=== PATIENT | male | born 1990 | race African-American/Black ===

== ENCOUNTER 2016-07-26 12:49 | Inpatient (IN) | payer OTHER ==
[2016-07-26 16:07] VITALS: BMI 26.4
--- NOTE | 2016-07-26 17:14 | HP ---
CIWA Score - CIWA Score Nausea/Vomitin-Mild Nausea/No Vomiting Muscle Tremors: 4-Moderate,w/Arms Extend Anxiety: 4-Mod. Anxious/Guarded Agitation: 4-Moderately Restless Paroxysmal Sweats: 1-Minimal Palms Moist Orientation: 1-Uncertain about Date Tacttile Disturbances: 0-None Auditory Disturbances: 0-None Visual Disturbances: 0-None Headache: 3-Moderate CIWA-Ar Total Score: 18 Admission ROS BHS - HPI Chief Complaint: WITHDRAWAL SX Allergies/Adverse Reactions: Allergies Allergy/AdvReac Type Severity Reaction Status Date / Time No Known Allergies Allergy Verified 07/26/16 16:37 History of Present Illness: 26 YEARS OLD MALE WITH LONG HISTORY OF ALCOHOL NICOTINE DEPENDENCE, HAS HIV HEPATITIS C AND ANXIETY, LONGEST SOBRIETY "DAYS" IS ADMITTED TO DETOX Exam Limitations: No Limitations - Ebola screening Have you traveled outside of the country in the last 21 days: No Have you had contact with anyone from an Ebola affected area: No Have you been sick,other than usual withdrawal symptoms: No Do you have a fever: No - Review of Systems Constitutional: Chills, Changes in sleep EENT: reports: No Symptoms Reported Respiratory: reports: No Symptoms reported Cardiac: reports: No Symptoms Reported GI: reports: Nausea, Abdominal cramping : reports: No Symptoms Reported Musculoskeletal: reports: Back Pain, Joint Pain, Muscle Pain, Neck Pain Integumentary: reports: No Symptoms Reported Neuro: reports: Tremors Endocrine: reports: No Symptoms Reported Hematology: reports: No Symptoms Reported Psychiatric: reports: Judgement Intact, Anxious Other Systems: Reviewed and Negative Patient History - Patient Medical History Hx Anemia: No Hx Asthma: No Hx Chronic Obstructive Pulmonary Disease (COPD): No Hx Cancer: No Hx Cardiac Disorders: No Hx Congestive Heart Failure: No Hx Hypertension: No Hx Hypercholesterolemia: No Hx Pacemaker: No HX Cerebrovascular Accident: No Hx Seizures: No Hx Dementia: No Hx Diabetes: No Hx Gastrointestinal Disorders: No Hx Liver Disease: No Hx Genitourinary Disorders: No Hx Sexually Transmitted Disorders: No Hx Renal Disease (ESRD): No Hx Thyroid Disease: No Hx Human Immunodeficiency Virus (HIV): Yes Hx Hepatitis C: Yes Hx Depression: Yes Hx Suicide Attempt: No Hx Bipolar Disorder: No Hx Schizophrenia: No - Patient Surgical History Past Surgical History: No - PPD History Previous Implant?: No Documented Results: Negative w/o proof Implanted On Prior [facility] Admission?: No PPD to be Administered?: Yes - Smoking Cessation Smoking history: Current every day smoker Have you smoked in the past 12 months: Yes Aproximately how many cigarettes per day: 2 Cigars Per Day: 0 Hx Chewing Tobacco Use: No Initiated information on smoking cessation: Yes 'Breaking Loose' booklet given: 07/26/16 - Substance & Tx. History Hx Alcohol Use: Yes Hx Substance Use: Yes Substance Use Type: Alcohol, Cocaine Hx Substance Use Treatment: Yes - Substances Abused Alcohol Route: Oral Frequency: Daily Amount used: 5 22oz cans four loco Age of first use: 16 Date of Last Use: 07/26/16 Cocaine Route: Smoking Frequency: 1-2 times per week Amount used: $30-40 Age of first use: 23 Date of Last Use: 07/25/16 Family Disease History - Family Disease History Family Disease History: Diabetes: Grandparent, Father, Heart Disease: Mother Admission Physical Exam S - Vital Signs Vital Signs: Vital Signs - 24 hr 07/26/16 15:24 Temperature 97 F L Pulse Rate 87 Respiratory 20 Rate Blood Pressure 111/60 - Physical General Appearance: Yes: Nourished, Appropriately Dressed, Mild Distress, Tremorous, Irritable, Sweating, Anxious HEENTM: Yes: Hearing grossly Normal, Normal ENT Inspection, Normocephalic, Normal Voice Respiratory: Yes: Chest Non-Tender, Lungs Clear, Normal Breath Sounds, No Respiratory Distress, No Accessory Muscle Use Neck: Yes: Supple, Trachea in good position Breast: Yes: Breasts Symetrical Cardiology: Yes: Regular Rhythm, Regular Rate, S1, S2 Abdominal: Yes: Non Tender, Soft Genitourinary: Yes: Within Normal Limits Back: Yes: Normal Inspection Musculoskeletal: Yes: full range of Motion, Gait Steady, Back pain Extremities: Yes: Normal Range of Motion, Non-Tender, Tremors Neurological: Yes: Alert, Motor Strength 5/5, Normal Response, Depressed Affect Integumentary: Yes: Warm, Moist Lymphatic: Yes: Within Normal Limits - Diagnostic (1) Alcohol dependence with uncomplicated withdrawal Current Visit: Yes Status: Acute (2) HIV (human immunodeficiency virus infection) Current Visit: Yes Status: Acute (3) Nicotine dependence Current Visit: Yes Status: Acute Qualifiers: Nicotine product type: cigarettes Substance use status: uncomplicated Qualified Code(s): F17.210 - Nicotine dependence, cigarettes, uncomplicated (4) Hepatitis C antibody test positive Current Visit: Yes Status: Chronic (5) Benign heart murmur Current Visit: Yes Status: Chronic Cleared for Admission [facility] - Detox or Rehab [facility] Level of Care: Medically Managed Detox Regimen/Protocol: Librium [facility] Breath Alcohol Content Breath Alcohol Content: 0 Urine Drug Screen - Results Drug Screen Negative: No Urine Drug Screen Results: HALIE-Cocaine, BZO-Benzodiazepines
[2016-07-26] MEDS ORDERED: MENTHOL/PHENOL 1 EACH UD MM PRN (17:19)
[2016-07-26] MEDS ORDERED: MAG HYDROX/AL HYDROX/SIMETH 30 ML UNIT-DOSE CUP PO PRN (17:19)
[2016-07-26] MEDS ORDERED: NICOTINE POLACRILEX 2 MG GUM BC PRN (17:19)
[2016-07-26] MEDS ORDERED: MAGNESIUM CITRATE 300 ML BOTTLE PO PRN (17:19)
[2016-07-26] MEDS ORDERED: guaiFENesin/D-METHORPHAN HB 10 ML UNIT-DOSE CUPS PO PRN (17:19)
[2016-07-26] MEDS ORDERED: ACETAMINOPHEN 325 MG TABLET (FP) PO PRN (17:19)
[2016-07-26] MEDS ORDERED: LOPERAMIDE HCL 2 MG CAPSULE PO PRN (17:19)
[2016-07-26] MEDS ORDERED: P-EPHED 60MG/TRIPROLIDI 2.5MG TABLET PO PRN (17:19)
[2016-07-26] MEDS ORDERED: IBUPROFEN 400 MG TABLET (FP) PO PRN (17:19)
[2016-07-26] MEDS ORDERED: MAGNESIUM HYDROX 2400MG/30ML ORAL SUSPENSION 30 ML CUP PO PRN (17:19)
[2016-07-26] MEDS: chlordiazePOXIDE HCL 25 MG CAPSULE PO PRN (18:17)
[2016-07-26] MEDS: chlordiazePOXIDE HCL 25 MG CAPSULE PO SCH (22:22)
[2016-07-26] MEDS: THIAMINE HCL 100 MG TABLET (FP) PO SCH (22:23)
[2016-07-26] MEDS: diphenhydrAMINE HCL 50 MG CAPSULE PO PRN (22:25)
[2016-07-26 23:17] LABS: URINE APPEARANCE CLEAR; URINE BILIRUBIN NEGATIVE (NEGATIVE); URINE BLOOD NEGATIVE (NEGATIVE); URINE COLOR YELLOW; URINE GLUCOSE (UA) NEGATIVE (NEGATIVE); URINE KETONE NEGATIVE (NEGATIVE); URINE LEUK ESTERASE NEGATIVE (NEGATIVE); URINE NITRITE NEGATIVE (NEGATIVE); URINE PROTEIN NEGATIVE (NEGATIVE); URINE UROBILINOGEN 2.0 E.U/dl E.U./dl (0.2-1.0)
[2016-07-27] MEDS: chlordiazePOXIDE HCL 25 MG CAPSULE PO SCH ×4 (06:05→22:39)
[2016-07-27 10:03] LABS: MCH 31.1 pg (25.7-33.7); MCHC 32.8 g/dl (32.0-35.9); MEAN CELL VOLUME 94.8 fl (80-96); PLATELET COUNT 218 K/MM3 (134-434); RDW 14.6 % (11.9-15.9); WHITE BLOOD COUNT 4.6 K/mm3 (4.0-10.0)
--- NOTE | 2016-07-27 10:05 | PN ---
[facility] CIWA - CIWA Score Nausea/Vomitin-No Nausea/No Vomiting Muscle Tremors: 4-Moderate,w/Arms Extend Anxiety: 4-Mod. Anxious/Guarded Agitation: 5 Paroxysmal Sweats: 3 Orientation: 0-Oriented Tacttile Disturbances: 0-None Auditory Disturbances: 0-None Visual Disturbances: 0-None Headache: 1-Very Mild CIWA-Ar Total Score: 17 BHS Progress Note (SOAP) Subjective: shakes sweats irritable agitation anxiety body aches Objective: 07/27/16 10:04 Vital Signs Temperature 97.2 F L 07/27/16 09:32 Pulse Rate 77 07/27/16 09:32 Respiratory Rate 18 07/27/16 09:32 Blood Pressure 136/76 07/27/16 09:32 O2 Sat by Pulse Oximetry (%) Laboratory Tests 07/26/16 07/27/16 23:00 05:50 WBC 4.6 RBC 5.02 Hgb 15.6 Hct 47.6 MCV 94.8 MCHC 32.8 RDW 14.6 Plt Count 218 MPV 10.0 Urine Color Yellow Urine Appearance Clear Urine pH 5.0 Ur Specific [place] 1.021 Urine Protein Negative Urine Glucose (UA) Negative Urine Ketones Negative Urine Blood Negative Urine Nitrite Negative Urine Bilirubin Negative Urine Urobilinogen 2.0 e.u/dl Ur Leukocyte Esterase Negative labs pending awake/alert ambulating no acute distress Assessment: 07/27/16 10:05 withdrawal sx Plan: increase fluids labs pending continue detox motrin prn
[2016-07-27] MEDS: PRENATAL VITAMINS W/ FOLIC ACID TABLET (FP) PO SCH (10:19)
[2016-07-27] MEDS: NICOTINE 14 MG/24 HOURS TOPICAL PATCH TD SCH (10:22)
[2016-07-27] MEDS: AMMONIUM LACTATE 12% LOTION 225 GM BOTTLE TP SCH ×2 (11:00→22:40)
[2016-07-27 11:17] LABS: ALK PHOS 103 U/L (45-117); ANION GAP 7 (8-16); BILIRUBIN,TOTAL 0.3 mg/dL (0.2-1.0); CALCIUM 8.7 mg/dL (8.5-10.1); CO2 28 mmol/L (21-32); CREATININE 1.1 mg/dL (0.7-1.3); GLUCOSE,RANDOM 129 mg/dL (74-106); SGOT/AST 120 U/L (15-37); SGPT/ALT 254 U/L (12-78); TOT PROT 8.3 g/dl (6.4-8.2)
[2016-07-27] MEDS: hydrOXYzine PAMOATE 50 MG CAPSULE (FP) PO PRN (12:22)
--- NOTE | 2016-07-27 14:14 | CONSULT ---
[facility] Psychiatric Consult - Data Date of interview: 07/27/16 Admission source: [facility] Identifying data: First admission to [facility] for this 26 y/o AA male seeking detox treatment on for alcohol and cocaine dependence.Patient is single without children,domiciled,unemployed and supported on food stamps. Substance Abuse History: - Smoking Cessation. Smoking history: Current every day smoker. Have you smoked in the past 12 months: Yes. Aproximately how many cigarettes per day: 2. Cigars Per Day: 0. Hx Chewing Tobacco Use: No. Initiated information on smoking cessation: Yes. 'Breaking Loose' booklet given : 07/26/16. - Substance & Tx. History. Hx Alcohol Use: Yes. Hx Substance Use : Yes. Substance Use Type: Alcohol, Cocaine. Hx Substance Use Treatment: Yes. - Substances Abused. Alcohol. Route: Oral. Frequency: Daily. Amount used: 5 22oz cans four loco. Age of first use: 16. Date of Last Use: . Cocaine. Route: Smoking. Frequency: 1-2 times per week. Amount used: $30-40. Age of first use: 23. Date of Last Use: 07/25/16. Confirmed by patient. Medical History: HIV infection and hepatitis C. Psychiatric History: Patient reports a history of one psychiatric hospitalization (2015) at [facility].Diagnosed with MDD and Anxiety Disorder.Mr Berrios used to be on sertraline (later switched to lexapro) .Discontinued because of intolerable side effects (sexual impotence,suicidal ideation).Patient has stopped going to [facility],in [facility],where he used to undergo psychotherapy.His medication consists of xanax up to 6 mg/day.No reported history of suicide attempts. Physical/Sexual Abuse/Trauma History: Patient denies. Additional Comment: Urine Drug Screen Results: HALIE-Cocaine, BZO- Benzodiazepines.Noted. Mental Status Exam - Mental Status Exam Alert and Oriented to: Time, Place, Person Cognitive Function: Good Patient Appearance: Well Groomed Mood: Nervous, Withdrawn, Anxious Affect: Mood Congruent Patient Behavior: Sedated, Fatigued, Appropriate, Cooperative Speech Pattern: Clear Voice Loudness: Normal Thought Process: Goal Oriented Thought Disorder: Not Present Hallucinations: Denies Suicidal Ideation: Denies Homicidal Ideation: Denies Insight/Judgement: Poor Sleep: Poorly, Difficulty falling asleep Appetite: Good Muscle strength/Tone: Normal Gait/Station: Normal Psychiatric Findings - Problem List ([place] 1, 2,3) (1) Alcohol dependence with uncomplicated withdrawal Current Visit: Yes Status: Acute (2) Nicotine dependence Current Visit: Yes Status: Acute Qualifiers: Nicotine product type: cigarettes Substance use status: uncomplicated Qualified Code(s): F17.210 - Nicotine dependence, cigarettes, uncomplicated (3) Cocaine dependence Current Visit: Yes Status: Acute (4) Substance induced mood disorder Current Visit: Yes Status: Acute (5) HIV (human immunodeficiency virus infection) Current Visit: Yes Status: Chronic (6) Benign heart murmur Current Visit: Yes Status: Chronic (7) Hepatitis C antibody test positive Current Visit: Yes Status: Chronic (8) Insomnia Current Visit: Yes Status: Acute - Initial Treatment Plan Initial Treatment Plan: Psychoeducation.Detoxification.Zolpidem 5 mg po hs prn.Side effects/benefits discussed with the patient.He agrees with this plan.Observation.
--- NOTE | 2016-07-27 17:29 | PN ---
BHS Progress Note Note: vomiting undigested food zofran sl 4 mg x 1 now discontinue motrin begin zantac increase oral fluid continue detox
[2016-07-27] MEDS ORDERED: ONDANSETRON *ODT* 4 MG TABLET SL ONE (18:00)
[2016-07-27] MEDS: CYCLOBENZAPRINE HCL 10 MG TABLET (FP) PO PRN (18:51)
[2016-07-27] MEDS: ZOLPIDEM TARTRATE 5 MG TABLET PO PRN (22:39)
[2016-07-27] MEDS: RANITIDINE HCL 150 MG TABLET (FP) PO SCH (22:39)
[2016-07-27] MEDS: THIAMINE HCL 100 MG TABLET (FP) PO SCH (22:39)
[2016-07-27] MEDS: KETOCONAZOLE 2% CREAM - 60GM TUBE TP SCH (22:40)
[2016-07-28] MEDS: hydrOXYzine PAMOATE 50 MG CAPSULE (FP) PO PRN ×3 (04:10→19:45)
[2016-07-28] MEDS: CYCLOBENZAPRINE HCL 10 MG TABLET (FP) PO PRN ×3 (04:10→22:31)
[2016-07-28] MEDS: chlordiazePOXIDE HCL 25 MG CAPSULE PO SCH ×3 (05:42→17:53)
[2016-07-28] MEDS: chlordiazePOXIDE HCL 25 MG CAPSULE PO PRN (08:48)
[2016-07-28] MEDS ORDERED: PENICILLIN G BENZATHINE 2,400,000 UNIT/4 ML PFS IM ONE (09:52)
[2016-07-28] MEDS: NICOTINE 14 MG/24 HOURS TOPICAL PATCH TD SCH (10:37)
[2016-07-28] MEDS: PRENATAL VITAMINS W/ FOLIC ACID TABLET (FP) PO SCH (10:37)
[2016-07-28] MEDS: RANITIDINE HCL 150 MG TABLET (FP) PO SCH ×2 (10:37→22:26)
[2016-07-28] MEDS: AMMONIUM LACTATE 12% LOTION 225 GM BOTTLE TP SCH ×2 (10:38→22:27)
--- NOTE | 2016-07-28 12:31 | EKG ---
Test Reason : Blood Pressure : / mmHG Vent. Rate : 067 BPM Atrial Rate : 067 BPM P-R Int : 148 ms QRS Dur : 088 ms QT Int : 388 ms P-R-T Axes : 016 -07 029 degrees QTc Int : 409 ms NORMAL SINUS RHYTHM NONSPECIFIC T WAVE ABNORMALITY ABNORMAL ECG NO PREVIOUS ECGS AVAILABLE Confirmed by BIBIANA RODRIGUEZ MD ([id number]) on 07/28/2016 12:31:02 PM Referred By: Confirmed By:BIBIANA RODRIGUEZ MD
--- NOTE | 2016-07-28 15:25 | PN ---
[facility] CIWA - CIWA Score Nausea/Vomitin Muscle Tremors: 2 Anxiety: 3 Agitation: 3 Paroxysmal Sweats: 3 Orientation: 0-Oriented Tacttile Disturbances: 1-Very Mild Itch/Numbness Auditory Disturbances: 0-None Visual Disturbances: 0-None Headache: 0-None Present CIWA-Ar Total Score: 15 [facility] Progress Note (SOAP) Subjective: interrupted sleep, sweats, weak , anxious Objective: 07/28/16 15:23 Vital Signs Temperature 97.3 F L 07/28/16 14:10 Pulse Rate 91 H 07/28/16 14:10 Respiratory Rate 18 07/28/16 14:10 Blood Pressure 121/64 07/28/16 14:10 O2 Sat by Pulse Oximetry (%) Laboratory Tests 07/26/16 07/27/16 07/27/16 23:00 05:50 05:50 WBC 4.6 RBC 5.02 Hgb 15.6 Hct 47.6 MCV 94.8 MCHC 32.8 RDW 14.6 Plt Count 218 MPV 10.0 Sodium 140 Potassium 3.9 Chloride 105 Carbon Dioxide 28 Anion Gap 7 L BUN 11 Creatinine 1.1 Creat Clearance w eGFR > 60 Random Glucose 129 H Calcium 8.7 Total Bilirubin 0.3 AST 120 H ALT 254 H Alkaline Phosphatase 103 Total Protein 8.3 H Albumin 4.0 Urine Color Yellow Urine Appearance Clear Urine pH 5.0 Ur Specific [place] 1.021 Urine Protein Negative Urine Glucose (UA) Negative Urine Ketones Negative Urine Blood Negative Urine Nitrite Negative Urine Bilirubin Negative Urine Urobilinogen 2.0 e.u/dl Ur Leukocyte Esterase Negative RPR Titer T.pallidum Ab (MHA) 07/27/16 05:50 WBC RBC Hgb Hct MCV MCHC RDW Plt Count MPV Sodium Potassium Chloride Carbon Dioxide Anion Gap BUN Creatinine Creat Clearance w eGFR Random Glucose Calcium Total Bilirubin AST ALT Alkaline Phosphatase Total Protein Albumin Urine Color Urine Appearance Urine pH Ur Specific [place] Urine Protein Urine Glucose (UA) Urine Ketones Urine Blood Urine Nitrite Urine Bilirubin Urine Urobilinogen Ur Leukocyte Esterase RPR Titer Reactive 1:4 H T.pallidum Ab (MHA) Reactive pt aox3 in nad ambulating Assessment: 07/28/16 15:24 withdrawl sx's syphilis -pt treated 6m ago when titer went to 1:4, 1;8 Plan: cont. detox increase fluids pysch re eval. b. pcn 2.4m u im
[2016-07-28] MEDS: THIAMINE HCL 100 MG TABLET (FP) PO SCH (22:27)
[2016-07-28] MEDS: chlordiazePOXIDE 5 MG CAPSULE PO SCH (22:27)
[2016-07-28] MEDS: ZOLPIDEM TARTRATE 5 MG TABLET PO PRN (22:30)
[2016-07-29] MEDS: KETOCONAZOLE 2% CREAM - 60GM TUBE TP SCH ×2 (00:27→22:25)
[2016-07-29] MEDS: diphenhydrAMINE HCL 50 MG CAPSULE PO PRN (01:27)
[2016-07-29] MEDS: chlordiazePOXIDE HCL 25 MG CAPSULE PO PRN ×2 (01:27→12:49)
[2016-07-29] MEDS: chlordiazePOXIDE 5 MG CAPSULE PO SCH ×3 (05:44→18:22)
[2016-07-29] MEDS: CYCLOBENZAPRINE HCL 10 MG TABLET (FP) PO PRN ×3 (05:45→22:26)
[2016-07-29] MEDS: hydrOXYzine PAMOATE 50 MG CAPSULE (FP) PO PRN ×2 (07:42→14:29)
[2016-07-29] MEDS: PRENATAL VITAMINS W/ FOLIC ACID TABLET (FP) PO SCH (10:40)
[2016-07-29] MEDS: RANITIDINE HCL 150 MG TABLET (FP) PO SCH ×2 (10:40→22:26)
[2016-07-29] MEDS: AMMONIUM LACTATE 12% LOTION 225 GM BOTTLE TP SCH ×2 (10:41→22:26)
[2016-07-29] MEDS: NICOTINE 14 MG/24 HOURS TOPICAL PATCH TD SCH (10:41)
[2016-07-29] MEDS ORDERED: IBUPROFEN 400 MG TABLET (FP) PO PRN (12:33)
--- NOTE | 2016-07-29 12:34 | PN ---
BHS Progress Note (SOAP) Subjective: body aches sweats Objective: 07/29/16 12:33 Vital Signs Temperature 98.6 F 07/29/16 09:49 Pulse Rate 95 H 07/29/16 09:49 Respiratory Rate 20 07/29/16 09:49 Blood Pressure 134/70 07/29/16 09:49 O2 Sat by Pulse Oximetry (%) awake/alert ambulating no acute distress Assessment: 07/29/16 12:34 withdrawal sx Plan: continue detox increase fluids motrin 800mg prn d/c in am
[2016-07-29] MEDS ORDERED: cloNIDine HCL 0.1 MG TABLET PO ONE (13:09)
[2016-07-29] MEDS ORDERED: ZOLPIDEM TARTRATE 5 MG TABLET PO PRN ×2 (14:33→22:00)
[2016-07-29] MEDS ORDERED: cloNIDine HCL 0.1 MG TABLET ONE (16:12)
[2016-07-29] MEDS: THIAMINE HCL 100 MG TABLET (FP) PO SCH (22:26)
[2016-07-29] MEDS: chlordiazePOXIDE HCL 10 MG CAPSULE PO SCH (22:26)
[2016-07-30] MEDS: diphenhydrAMINE HCL 50 MG CAPSULE PO PRN (01:20)
[2016-07-30] MEDS: chlordiazePOXIDE HCL 10 MG CAPSULE PO SCH ×2 (05:30→10:46)
[2016-07-30 06:50] VITALS: BP 120/86; PULSE 80; TEMP 96.9
--- NOTE | 2016-07-30 08:42 | DS ---
[facility] Detox Discharge Summary Admission Date: 07/26/16 Discharge Date: 07/30/16 - History Present History: Alcohol Dependence Pertinent Past History: see below - Physical Exam Results Vital Signs: Vital Signs Temperature 96.9 F L 07/30/16 06:50 Pulse Rate 80 07/30/16 06:50 Respiratory Rate 18 07/30/16 06:50 Blood Pressure 120/86 07/30/16 06:50 O2 Sat by Pulse Oximetry (%) Pertinent Admission Physical Exam Findings: met admission criteria medically stable on dc detox completed dc today - Treatment Hospital Course: Detox Protocol Followed, Detoxed Safely, Responded well, Discharged Condition Good, Rehab Referral Accepted - Medication Discharge Medications: Ambulatory Orders Zolpidem Tartrate [Ambien] 10 mg PO HS PRN #14 tablet MDD 10 07/29/16 Abacavir/Dolutegravir/Lamivudi [Triumeq Tablet] 1 each PO DAILY 07/30/16 - Diagnosis (1) Alcohol dependence with uncomplicated withdrawal Current Visit: Yes Status: Acute (2) Cocaine dependence Current Visit: Yes Status: Acute (3) Insomnia Current Visit: Yes Status: Acute (4) Nicotine dependence Current Visit: Yes Status: Acute Qualifiers: Nicotine product type: cigarettes Substance use status: uncomplicated Qualified Code(s): F17.210 - Nicotine dependence, cigarettes, uncomplicated (5) Substance induced mood disorder Current Visit: Yes Status: Acute (6) Benign heart murmur Current Visit: Yes Status: Chronic (7) HIV (human immunodeficiency virus infection) Current Visit: Yes Status: Chronic (8) Hepatitis C antibody test positive Current Visit: Yes Status: Chronic - AMA Did Patient Leave Against Medical Advice: No
[2016-07-30] MEDS: PRENATAL VITAMINS W/ FOLIC ACID TABLET (FP) PO SCH (10:45)
[2016-07-30] MEDS: AMMONIUM LACTATE 12% LOTION 225 GM BOTTLE TP SCH (10:46)
[2016-07-30] MEDS: RANITIDINE HCL 150 MG TABLET (FP) PO SCH (10:46)
[2016-07-30] MEDS: NICOTINE 14 MG/24 HOURS TOPICAL PATCH TD SCH ×2 (10:46→10:52)
[2016-07-30] MEDS: CYCLOBENZAPRINE HCL 10 MG TABLET (FP) PO PRN (10:48)
== END 2016-07-30 11:20 | disposition other institution (70) | DRG 774 ==
LOC: YASAS 12:49 → Y6N 16:48
PROVIDERS: ADMIT Internal Medicine Addiction Medicine; ATTEND Internal Medicine Addiction Medicine
PROC: HZ2ZZZZ Detoxification Services for Substance Abuse Treatment (ICD-10-PCS; principal; 2016-07-26)
DX: F10.230 Alcohol dependence with withdrawal, uncomplicated (principal); F14.20 Cocaine dependence, uncomplicated; F17.210 Nicotine dependence, cigarettes, uncomplicated; F19.24 Other psychoactive substance dependence with psychoactive substance-induced mood disorder; Z21 Asymptomatic human immunodeficiency virus [HIV] infection status; G47.00 Insomnia, unspecified; B18.2 Chronic viral hepatitis C; R01.1 Cardiac murmur, unspecified; A53.9 Syphilis, unspecified
CPT/HCPCS: 36415; 80053; 81003; 85027; 86593; 86780; 93005; 93010

== ENCOUNTER 2016-07-30 11:36 | Inpatient (IN) | payer OTHER ==
[2016-07-30] MEDS ORDERED: NICOTINE POLACRILEX 2 MG GUM BUC PRN (12:00)
[2016-07-30] MEDS ORDERED: IBUPROFEN 400 MG TABLET (FP) PO PRN (12:00)
[2016-07-30] MEDS ORDERED: MAGNESIUM HYDROX 2400MG/30ML ORAL SUSPENSION 30 ML CUP PO PRN (12:00)
[2016-07-30] MEDS ORDERED: ACETAMINOPHEN 325 MG TABLET (FP) PO PRN (12:00)
[2016-07-30] MEDS ORDERED: MAGNESIUM CITRATE 300 ML BOTTLE PO PRN (12:00)
[2016-07-30] MEDS ORDERED: guaiFENesin/D-METHORPHAN HB 10 ML UNIT-DOSE CUPS PO PRN (12:00)
[2016-07-30] MEDS ORDERED: MAG HYDROX/AL HYDROX/SIMETH 30 ML UNIT-DOSE CUP PO PRN (12:00)
[2016-07-30] MEDS ORDERED: P-EPHED 60MG/TRIPROLIDI 2.5MG TABLET PO PRN (12:00)
[2016-07-30] MEDS ORDERED: MENTHOL/PHENOL 1 EACH UD MM PRN (12:00)
[2016-07-30] MEDS ORDERED: LOPERAMIDE HCL 2 MG CAPSULE PO PRN (12:00)
[2016-07-30] MEDS ORDERED: AMMONIUM LACTATE 12% LOTION 225 GM BOTTLE TP PRN (12:01)
[2016-07-30] MEDS: NICOTINE 21 MG/24 HOURS TOPICAL PATCH TD SCH (13:58)
--- NOTE | 2016-07-30 14:22 | HP ---
Psychiatrist Admission - Data Date of interview: 07/30/16 Admission source: 6N Identifying data: This is the first 5N inpatient rehabilitation admission for this 26 year old AA male who is single without children,domiciled,unemployed and supported on food stamps. Medical History: HIV+ and hepatitis C, smokes 2 cigarettes a day.. Psychiatric History: Patient reports history of depression and one psychiatric hospitalization in 2016 for 10 days at [facility] and was diagnosed with MDD and Anxiety Disorder and started on sertraline which later switched to lexapro. Discontinued due to sexual side-effects. He was going to [facility],in [facility],where he used to undergo psychotherapy and continue his Lexapro.States PCP prescribed Xanax up to 6 mg/ day. No reported history of suicide attempts. Reports he is depresseda and anxious, having panic attacks, uncomfortable when surrouded. Physical/Sexual Abuse/Trauma History: Denies history of sexual, physical and verbal abuse. Allergies/Adverse Reactions: Allergies Allergy/AdvReac Type Severity Reaction Status Date / Time No Known Allergies Allergy Verified 07/30/16 12:11 Date of last physical exam: 07/26/16 Concur with the findings of this exam: Yes - Substance Abuse/Tx History Hx Alcohol Use: Yes Hx Substance Use: Yes Substance Use Type: Alcohol (5 22oz cans four loco.), Cocaine ($30 3 times a week), Tranquilizers (xanax up to 6 mg ) Hx Substance Use Treatment: Yes - Admission Criteria Previous failed treatment: Yes Poor recovery environment: Yes Comorbidities: Yes Lacks judgement: Yes Mental Status Exam - Mental Status Exam Alert and Oriented to: Time, Place, Person Cognitive Function: Good Patient Appearance: Well Groomed Mood: Depressed, Sad, Anxious Patient Behavior: Appropriate, Cooperative Speech Pattern: Clear, Appropriate Voice Loudness: Normal Thought Process: Goal Oriented Thought Disorder: Not Present Hallucinations: Denies Suicidal Ideation: Denies Homicidal Ideation: Denies Insight/Judgement: Fair Sleep: Fair Appetite: Fair Muscle strength/Tone: Normal Gait/Station: Normal Psychiatric Findings - Problem List ([place] 1, 2,3) (1) Cocaine dependence Current Visit: No Status: Acute (2) Nicotine dependence Current Visit: No Status: Acute Qualifiers: Nicotine product type: cigarettes Substance use status: uncomplicated Qualified Code(s): F17.210 - Nicotine dependence, cigarettes, uncomplicated (3) HIV (human immunodeficiency virus infection) Current Visit: No Status: Chronic (4) Alcohol dependence Current Visit: Yes Status: Acute (5) Benzodiazepine dependence Current Visit: Yes Status: Acute (6) LASHONDA (generalized anxiety disorder) Current Visit: Yes Status: Acute (7) Panic disorder Current Visit: Yes Status: Acute (8) Mood disorder Current Visit: Yes Status: Acute - Initial Treatment Plan Initial Treatment Plan: discussed side-effects and benefits of Gabapentin and Buspar, patient agreed to start treatment, will continue Lexapro, will adjust dosage as needed.
--- NOTE | 2016-07-30 16:36 | HP ---
[facility] Rehab Assess/Revision - Admission History Admitted to Rehab from: [facility] [place] Date of Admission to Rehab: 07/30/16 - Findings Detox History & Physical reviewed: Yes Concur with findings: Yes Comments/Additional Findings: transferred from detox to rehab admission as per protocol
[2016-07-30] MEDS: CYCLOBENZAPRINE HCL 10 MG TABLET (FP) PO PRN (17:05)
[2016-07-30] MEDS: hydrOXYzine PAMOATE 50 MG CAPSULE (FP) PO PRN (19:06)
[2016-07-30] MEDS: THIAMINE HCL 100 MG TABLET (FP) PO SCH (22:06)
[2016-07-30] MEDS: RANITIDINE HCL 150 MG TABLET (FP) PO SCH (22:06)
[2016-07-30] MEDS: GABAPENTIN 100 MG CAPSULE (FP) PO SCH (22:06)
[2016-07-30] MEDS: busPIRone HCL 10 MG TABLET (FP) PO SCH (22:06)
[2016-07-30] MEDS: diphenhydrAMINE HCL 50 MG CAPSULE PO PRN (22:51)
[2016-07-31] MEDS: diphenhydrAMINE HCL 50 MG CAPSULE PO PRN (02:09)
[2016-07-31] MEDS: CYCLOBENZAPRINE HCL 10 MG TABLET (FP) PO PRN ×3 (06:48→22:00)
[2016-07-31] MEDS: GABAPENTIN 100 MG CAPSULE (FP) PO SCH ×3 (06:48→21:58)
[2016-07-31] MEDS: hydrOXYzine PAMOATE 50 MG CAPSULE (FP) PO PRN ×4 (06:48→21:58)
--- NOTE | 2016-07-31 07:51 | PN ---
S Progress Note Note: ASKED TO SEE PT WITH C/O DRY MOUTH AND WHITE COATING OF TONGUE. CLIENT C/O EXTREME DRY MOUTH, THICK WHITE COATING TO TONGUE WITH DIFFICULTY SWALLOWING AT TIME. DENIES FEVER, CHILLS, SOB, N/V ORAL- MMM, THICK YELLOWISH WHITE COATING/ PLAQUE NOTED TO TONGUE. 26 Y.O. MALE WITH H/O HIV WILL TREAT FOR ? ORAL THRUSH. START NYSTATIN PO Q6 H ORDERED CEPASTAT ORDERED FOR ANY ORAL PAIN PO HYDRATION ENCOURAGE ORAL HYGIENE CONT TO MONITOR FOR WORSENING/RESOLVING SX'S
[2016-07-31] MEDS: PRENATAL VITAMINS W/ FOLIC ACID TABLET (FP) PO SCH (09:44)
[2016-07-31] MEDS: ESCITALOPRAM OXALATE 10 MG TABLET (FP) PO SCH (09:44)
[2016-07-31] MEDS: RANITIDINE HCL 150 MG TABLET (FP) PO SCH ×2 (09:44→21:58)
[2016-07-31] MEDS: busPIRone HCL 10 MG TABLET (FP) PO SCH ×2 (09:44→21:58)
[2016-07-31] MEDS: KETOCONAZOLE 2% CREAM - 60GM TUBE TP SCH (09:48)
[2016-07-31] MEDS: NICOTINE 21 MG/24 HOURS TOPICAL PATCH TD SCH (09:50)
[2016-07-31] MEDS: NYSTATIN 500,000 UNITS/5 ML SUSPENSION PO SCH ×2 (12:42→17:50)
[2016-07-31] MEDS: THIAMINE HCL 100 MG TABLET (FP) PO SCH (21:58)
[2016-08-01] MEDS: diphenhydrAMINE HCL 50 MG CAPSULE PO PRN (00:02)
[2016-08-01] MEDS: NYSTATIN 500,000 UNITS/5 ML SUSPENSION PO SCH ×4 (00:03→18:19)
[2016-08-01] MEDS: GABAPENTIN 100 MG CAPSULE (FP) PO SCH ×3 (06:09→21:39)
[2016-08-01] MEDS: hydrOXYzine PAMOATE 50 MG CAPSULE (FP) PO PRN ×3 (06:09→21:39)
[2016-08-01] MEDS: CYCLOBENZAPRINE HCL 10 MG TABLET (FP) PO PRN ×3 (06:09→21:39)
[2016-08-01] MEDS: PRENATAL VITAMINS W/ FOLIC ACID TABLET (FP) PO SCH (09:53)
[2016-08-01] MEDS: ESCITALOPRAM OXALATE 10 MG TABLET (FP) PO SCH (09:53)
[2016-08-01] MEDS: NICOTINE 21 MG/24 HOURS TOPICAL PATCH TD SCH (09:53)
[2016-08-01] MEDS: RANITIDINE HCL 150 MG TABLET (FP) PO SCH ×2 (09:53→21:39)
[2016-08-01] MEDS: busPIRone HCL 10 MG TABLET (FP) PO SCH ×2 (09:53→21:39)
[2016-08-01] MEDS: KETOCONAZOLE 2% CREAM - 60GM TUBE TP SCH (09:53)
[2016-08-01] MEDS: THIAMINE HCL 100 MG TABLET (FP) PO SCH (21:39)
[2016-08-02] MEDS: NYSTATIN 500,000 UNITS/5 ML SUSPENSION PO SCH ×4 (00:38→11:45)
[2016-08-02] MEDS: GABAPENTIN 100 MG CAPSULE (FP) PO SCH ×2 (06:12→14:02)
[2016-08-02] MEDS: CYCLOBENZAPRINE HCL 10 MG TABLET (FP) PO PRN (06:16)
[2016-08-02] MEDS: hydrOXYzine PAMOATE 50 MG CAPSULE (FP) PO PRN ×2 (06:16→21:24)
[2016-08-02] MEDS: RANITIDINE HCL 150 MG TABLET (FP) PO SCH ×2 (10:17→21:23)
[2016-08-02] MEDS: busPIRone HCL 10 MG TABLET (FP) PO SCH ×2 (10:17→21:22)
[2016-08-02] MEDS: ESCITALOPRAM OXALATE 10 MG TABLET (FP) PO SCH (10:17)
[2016-08-02] MEDS: PRENATAL VITAMINS W/ FOLIC ACID TABLET (FP) PO SCH (10:17)
[2016-08-02] MEDS: NICOTINE 21 MG/24 HOURS TOPICAL PATCH TD SCH (10:19)
[2016-08-02] MEDS: KETOCONAZOLE 2% CREAM - 60GM TUBE TP SCH (10:22)
--- NOTE | 2016-08-02 15:34 | PN ---
Psychiatric Progress Note Vital Signs: Vital Signs Period Temp Pulse Resp BP Sys/Castillo Pulse Ox Last 24 Hr 97.8 F 88 18-18 134/88 Date of Session: 08/02/16 Chief Complaint:: "anxious" HPI: Patient is addressing alcohol , benzo dependence comorbid mood disocrder, asif and panic disorder. ROS: WNL Current Medications: Active Medications Generic Name Dose Route Start Last Admin Trade Name Freq PRN Reason Stop Dose Admin Acetaminophen 650 mg 07/30/16 12:00 07/30/16 19:06 Tylenol - PO 650 mg Q4H PRN Administration FEVER OR PAIN Al Hydroxide/Mg Hydroxide 30 ml 07/30/16 12:00 Mylanta Oral Suspension - PO Q6H PRN DYSPEPSIA Buspirone HCl 10 mg 08/02/16 22:00 Buspar - PO TID SARA Cyclobenzaprine HCl 10 mg 07/30/16 12:24 08/02/16 06:16 Flexeril - PO 10 mg TID PRN Administration MUSCLE SPASMS Diphenhydramine HCl 50 mg 07/30/16 12:00 08/01/16 00:02 Benadryl - PO 50 mg HSMR1 PRN Administration FOR ITCHING Escitalopram Oxalate 10 mg 07/31/16 10:00 08/02/16 10:17 Lexapro - PO 10 mg DAILY SARA Administration Eucalyptus/Menthol/Phenol/Sorbitol 1 each 07/30/16 12:00 Cepastat Lozenge - MM Q4H PRN SORE THROAT Gabapentin 300 mg 08/02/16 15:24 Neurontin - PO TID SARA Guaifenesin 10 ml 07/30/16 12:00 Robitussin Dm - PO Q6H PRN COUGH Hydroxyzine Pamoate 50 mg 07/30/16 14:44 08/02/16 06:16 Vistaril - PO 50 mg Q4H PRN Administration ANXIETY Ibuprofen 400 mg 07/30/16 12:00 Motrin - PO Q6H PRN PAIN Ketoconazole 1 applic 07/31/16 10:00 08/02/16 10:22 Nizoral 2% Cream - TP Not Given DAILY SARA Lactic Acid 1 applic 07/30/16 12:01 Lac-Hydrin 12 TP BID PRN DRY SKIN Loperamide HCl 4 mg 07/30/16 12:00 Imodium - PO Q6H PRN DIARRHEA Magnesium Hydroxide 30 ml 07/30/16 12:00 Milk Of Magnesia - PO DAILY PRN CONSTIPATION Nicotine 21 mg 07/30/16 12:44 08/02/16 10:19 Nicoderm Patch - TD 21 mg DAILY SARA Administration Nicotine Polacrilex 2 mg 07/30/16 12:00 Nicorette Gum - BUC Q2H PRN NICOTINE REPLACEMENT RX Non-Formulary Medication 1 each 07/31/16 10:00 08/02/16 10:18 Abacavir/Dolutegravir/Lamivudi [Triumeq Tablet] PO 1 each DAILY SARA Administration Nystatin 500,000 units 07/31/16 12:00 08/02/16 11:45 Nystatin Oral Suspension - PO 500,000 units Q6HPO SARA Administration Multivit/Folic Acid/Iron 1 tab 07/31/16 10:00 08/02/16 10:17 Vitamins ([facility]) - PO 1 tab DAILY SARA Administration Pseudoephedrine/Triprolidine 1 combo 07/30/16 12:00 Actifed - PO TID PRN NASAL CONGESTION Ranitidine HCl 150 mg 07/30/16 22:00 08/02/16 10:17 Zantac - PO 150 mg BID SARA Administration Thiamine HCl 100 mg 07/30/16 22:00 08/01/16 21:39 Vitamin B1 - PO 100 mg HS SARA Administration Medication(s) Change(s): increase Neurontin 300 mg po tis and Buspar 10 mg po tid Current Side Effect: Yes (dry mouth) Lab tests ordered: No Lab tests reviewed: Yes Provider note:: Patient reports he is very anxious, having panic attacks with SOB and sweating, difficutly to talk in group discussion due to anxiety, reviewed medications with the patient, will adjust dosage. Stress reduction and breathing technique discussed, supportive therapy provided. Total face to face time:: 35 Mental Status Exam - Mental Status Exam Alert and Oriented to: Time, Place, Person Cognitive Function: Grossly Intact Patient Appearance: Well Groomed Mood: Sad, Anxious Affect: Mood Congruent, Flat Patient Behavior: Appropriate Speech Pattern: Appropriate Voice Loudness: Normal Thought Process: Goal Oriented Thought Disorder: Not Present Hallucinations: Denies Suicidal Ideation: Denies Homicidal Ideation: Denies Insight/Judgement: Fair Sleep: Fair Appetite: Fair Muscle strength/Tone: Normal Gait/Station: Normal Psychiatric Treatment Plan - Problem List (1) Cocaine dependence Current Visit: No (2) Nicotine dependence Current Visit: No Qualifiers: Nicotine product type: cigarettes Substance use status: uncomplicated Qualified Code(s): F17.210 - Nicotine dependence, cigarettes, uncomplicated (3) HIV (human immunodeficiency virus infection) Current Visit: No (4) Alcohol dependence Current Visit: Yes (5) Benzodiazepine dependence Current Visit: Yes (6) ASIF (generalized anxiety disorder) Current Visit: Yes (7) Panic disorder Current Visit: Yes (8) Mood disorder Current Visit: Yes
[2016-08-02] MEDS: GABAPENTIN 300 MG CAPSULE (FP) PO SCH (21:23)
[2016-08-02] MEDS: THIAMINE HCL 100 MG TABLET (FP) PO SCH (21:23)
[2016-08-03] MEDS: NYSTATIN 500,000 UNITS/5 ML SUSPENSION PO SCH ×4 (00:45→18:54)
[2016-08-03] MEDS: GABAPENTIN 300 MG CAPSULE (FP) PO SCH ×3 (06:24→21:24)
[2016-08-03] MEDS: busPIRone HCL 10 MG TABLET (FP) PO SCH ×3 (06:24→21:23)
[2016-08-03] MEDS: CYCLOBENZAPRINE HCL 10 MG TABLET (FP) PO PRN ×2 (06:25→21:25)
[2016-08-03] MEDS: hydrOXYzine PAMOATE 50 MG CAPSULE (FP) PO PRN ×2 (06:25→10:38)
[2016-08-03] MEDS: ESCITALOPRAM OXALATE 10 MG TABLET (FP) PO SCH (10:38)
[2016-08-03] MEDS: RANITIDINE HCL 150 MG TABLET (FP) PO SCH ×2 (10:38→21:24)
[2016-08-03] MEDS: PRENATAL VITAMINS W/ FOLIC ACID TABLET (FP) PO SCH (10:38)
[2016-08-03] MEDS: NICOTINE 21 MG/24 HOURS TOPICAL PATCH TD SCH (10:40)
[2016-08-03] MEDS: KETOCONAZOLE 2% CREAM - 60GM TUBE TP SCH (10:40)
[2016-08-03] MEDS: THIAMINE HCL 100 MG TABLET (FP) PO SCH (21:24)
[2016-08-03] MEDS: diphenhydrAMINE HCL 50 MG CAPSULE PO PRN (21:25)
[2016-08-04] MEDS: NYSTATIN 500,000 UNITS/5 ML SUSPENSION PO SCH ×4 (00:58→17:26)
[2016-08-04] MEDS: busPIRone HCL 10 MG TABLET (FP) PO SCH ×3 (06:13→21:49)
[2016-08-04] MEDS: GABAPENTIN 300 MG CAPSULE (FP) PO SCH ×3 (06:13→21:49)
[2016-08-04] MEDS: hydrOXYzine PAMOATE 50 MG CAPSULE (FP) PO PRN (06:13)
[2016-08-04] MEDS: CYCLOBENZAPRINE HCL 10 MG TABLET (FP) PO PRN (06:13)
[2016-08-04] MEDS: NICOTINE 21 MG/24 HOURS TOPICAL PATCH TD SCH (10:32)
[2016-08-04] MEDS: ESCITALOPRAM OXALATE 10 MG TABLET (FP) PO SCH (10:33)
[2016-08-04] MEDS: RANITIDINE HCL 150 MG TABLET (FP) PO SCH ×2 (10:33→21:48)
[2016-08-04] MEDS: PRENATAL VITAMINS W/ FOLIC ACID TABLET (FP) PO SCH (10:33)
[2016-08-04] MEDS: KETOCONAZOLE 2% CREAM - 60GM TUBE TP SCH (10:35)
[2016-08-04] MEDS: THIAMINE HCL 100 MG TABLET (FP) PO SCH (21:48)
[2016-08-05] MEDS: NYSTATIN 500,000 UNITS/5 ML SUSPENSION PO SCH ×4 (00:25→21:58)
[2016-08-05] MEDS: GABAPENTIN 300 MG CAPSULE (FP) PO SCH ×3 (06:43→21:58)
[2016-08-05] MEDS: CYCLOBENZAPRINE HCL 10 MG TABLET (FP) PO PRN ×2 (06:43→22:00)
[2016-08-05] MEDS: hydrOXYzine PAMOATE 50 MG CAPSULE (FP) PO PRN ×2 (06:43→22:00)
[2016-08-05] MEDS: busPIRone HCL 10 MG TABLET (FP) PO SCH ×3 (06:43→21:58)
[2016-08-05] MEDS: NICOTINE 21 MG/24 HOURS TOPICAL PATCH TD SCH (10:30)
[2016-08-05] MEDS: ESCITALOPRAM OXALATE 10 MG TABLET (FP) PO SCH (10:30)
[2016-08-05] MEDS: RANITIDINE HCL 150 MG TABLET (FP) PO SCH ×2 (10:30→21:58)
[2016-08-05] MEDS: PRENATAL VITAMINS W/ FOLIC ACID TABLET (FP) PO SCH (10:30)
[2016-08-05] MEDS: KETOCONAZOLE 2% CREAM - 60GM TUBE TP SCH (10:34)
[2016-08-05] MEDS: THIAMINE HCL 100 MG TABLET (FP) PO SCH (21:58)
[2016-08-06] MEDS: NYSTATIN 500,000 UNITS/5 ML SUSPENSION PO SCH ×3 (00:33→13:15)
[2016-08-06] MEDS: hydrOXYzine PAMOATE 50 MG CAPSULE (FP) PO PRN (06:04)
[2016-08-06] MEDS: CYCLOBENZAPRINE HCL 10 MG TABLET (FP) PO PRN (06:05)
[2016-08-06] MEDS: GABAPENTIN 300 MG CAPSULE (FP) PO SCH ×2 (06:05→14:19)
[2016-08-06] MEDS: busPIRone HCL 10 MG TABLET (FP) PO SCH ×2 (06:05→14:19)
[2016-08-06 07:05] VITALS: BP 137/69; PULSE 99; TEMP 98.8
[2016-08-06] MEDS: NICOTINE 21 MG/24 HOURS TOPICAL PATCH TD SCH (10:33)
[2016-08-06] MEDS: RANITIDINE HCL 150 MG TABLET (FP) PO SCH (10:33)
[2016-08-06] MEDS: PRENATAL VITAMINS W/ FOLIC ACID TABLET (FP) PO SCH (10:33)
[2016-08-06] MEDS: ESCITALOPRAM OXALATE 10 MG TABLET (FP) PO SCH (10:33)
[2016-08-06] MEDS: KETOCONAZOLE 2% CREAM - 60GM TUBE TP SCH (10:35)
--- NOTE | 2016-08-06 15:08 | PN ---
Psychiatric Progress Note Vital Signs: Vital Signs Period Temp Pulse Resp BP Sys/Castillo Pulse Ox Last 24 Hr 98.8 F 99 18-20 137/69 Date of Session: 08/06/16 Chief Complaint:: discharge visit HPI: Patient is addressing alcohol , benzo dependence comorbid mood disocrder, asif and panic disorder. Current Medications: Active Medications Generic Name Dose Route Start Last Admin Trade Name Freq PRN Reason Stop Dose Admin Acetaminophen 650 mg 07/30/16 12:00 07/30/16 19:06 Tylenol - PO 650 mg Q4H PRN Administration FEVER OR PAIN Al Hydroxide/Mg Hydroxide 30 ml 07/30/16 12:00 Mylanta Oral Suspension - PO Q6H PRN DYSPEPSIA Buspirone HCl 10 mg 08/02/16 22:00 08/06/16 14:19 Buspar - PO 10 mg TID SARA Administration Cyclobenzaprine HCl 10 mg 07/30/16 12:24 08/06/16 06:05 Flexeril - PO 10 mg TID PRN Administration MUSCLE SPASMS Diphenhydramine HCl 50 mg 07/30/16 12:00 08/03/16 21:25 Benadryl - PO 50 mg HSMR1 PRN Administration FOR ITCHING Escitalopram Oxalate 10 mg 07/31/16 10:00 08/06/16 10:33 Lexapro - PO 10 mg DAILY SARA Administration Eucalyptus/Menthol/Phenol/Sorbitol 1 each 07/30/16 12:00 Cepastat Lozenge - MM Q4H PRN SORE THROAT Gabapentin 300 mg 08/02/16 15:24 08/06/16 14:19 Neurontin - PO 300 mg TID SARA Administration Guaifenesin 10 ml 07/30/16 12:00 Robitussin Dm - PO Q6H PRN COUGH Hydroxyzine Pamoate 50 mg 07/30/16 14:44 08/06/16 06:04 Vistaril - PO 50 mg Q4H PRN Administration ANXIETY Ibuprofen 400 mg 07/30/16 12:00 Motrin - PO Q6H PRN PAIN Ketoconazole 1 applic 07/31/16 10:00 08/06/16 10:35 Nizoral 2% Cream - TP Not Given DAILY SARA Lactic Acid 1 applic 07/30/16 12:01 Lac-Hydrin 12 TP BID PRN DRY SKIN Loperamide HCl 4 mg 07/30/16 12:00 Imodium - PO Q6H PRN DIARRHEA Magnesium Hydroxide 30 ml 07/30/16 12:00 Milk Of Magnesia - PO DAILY PRN CONSTIPATION Nicotine 21 mg 07/30/16 12:44 08/06/16 10:33 Nicoderm Patch - TD 21 mg DAILY SARA Administration Nicotine Polacrilex 2 mg 07/30/16 12:00 Nicorette Gum - BUC Q2H PRN NICOTINE REPLACEMENT RX Non-Formulary Medication 1 each 07/31/16 10:00 08/06/16 10:32 Abacavir/Dolutegravir/Lamivudi [Triumeq Tablet] PO 1 each DAILY SARA Administration Nystatin 500,000 units 07/31/16 12:00 08/06/16 13:15 Nystatin Oral Suspension - PO Not Given Q6HPO SARA Multivit/Folic Acid/Iron 1 tab 07/31/16 10:00 08/06/16 10:33 Vitamins (Sjr) - PO 1 tab DAILY SARA Administration Pseudoephedrine/Triprolidine 1 combo 07/30/16 12:00 Actifed - PO TID PRN NASAL CONGESTION Ranitidine HCl 150 mg 07/30/16 22:00 08/06/16 10:33 Zantac - PO 150 mg BID SARA Administration Thiamine HCl 100 mg 07/30/16 22:00 08/05/16 21:58 Vitamin B1 - PO 100 mg HS SARA Administration Current Side Effect: No Lab tests ordered: No Lab tests reviewed: Yes Provider note:: Patient requested to leave treatment today, he reports that he will go to [facility] to his friends and continue treatment in aa and na meetings. Medications well tolerated, patient reports he less anxious, scripts transferred to his pharmacy in [place], patient is stable for d/c. Total face to face time:: 15 Mental Status Exam - Mental Status Exam Alert and Oriented to: Time, Place, Person Cognitive Function: Good Patient Appearance: Well Groomed Mood: Hopeful Affect: Mood Congruent Patient Behavior: Appropriate, Cooperative Speech Pattern: Appropriate Voice Loudness: Normal Thought Process: Intact, Goal Oriented Thought Disorder: Not Present Hallucinations: Denies Suicidal Ideation: Denies Homicidal Ideation: Denies Insight/Judgement: Fair Sleep: Fair Appetite: Fair Muscle strength/Tone: Normal Gait/Station: Normal Psychiatric Treatment Plan - Problem List (1) Cocaine dependence Current Visit: No (2) Nicotine dependence Current Visit: No Qualifiers: Nicotine product type: cigarettes Substance use status: uncomplicated Qualified Code(s): F17.210 - Nicotine dependence, cigarettes, uncomplicated (3) HIV (human immunodeficiency virus infection) Current Visit: No (4) Alcohol dependence Current Visit: Yes (5) Benzodiazepine dependence Current Visit: Yes (6) ASIF (generalized anxiety disorder) Current Visit: Yes (7) Panic disorder Current Visit: Yes (8) Mood disorder Current Visit: Yes
== END 2016-08-06 15:45 | disposition home or self-care (01) | DRG 772 ==
LOC: YASAS 11:36 → Y5N 11:37
PROVIDERS: ADMIT Psychiatry & Neurology Psychiatry; ATTEND Psychiatry & Neurology Psychiatry
PROC: HZ42ZZZ Group Counseling for Substance Abuse Treatment, Cognitive-Behavioral (ICD-10-PCS; principal; 2016-08-06)
DX: F13.20 Sedative, hypnotic or anxiolytic dependence, uncomplicated (principal); F10.20 Alcohol dependence, uncomplicated; F14.20 Cocaine dependence, uncomplicated; F17.210 Nicotine dependence, cigarettes, uncomplicated; F41.1 Generalized anxiety disorder; F41.0 Panic disorder [episodic paroxysmal anxiety]; F39 Unspecified mood [affective] disorder; Z21 Asymptomatic human immunodeficiency virus [HIV] infection status

== ENCOUNTER 2016-09-24 12:44 | Inpatient (IN) | payer OTHER ==
[2016-09-24 14:22] VITALS: BMI 27.7
--- NOTE | 2016-09-24 17:40 | HP ---
CIWA Score - CIWA Score Nausea/Vomitin Muscle Tremors: 3 Anxiety: 3 Agitation: 3 Paroxysmal Sweats: 2 Orientation: 0-Oriented Tacttile Disturbances: 2-Mild Itch/Numbness/Burn Auditory Disturbances: 2-Mild Harshness/Frighten Visual Disturbances: 2-Mild Sensitivity Headache: 2-Mild CIWA-Ar Total Score: 22 Admission ROS BHS - HPI Chief Complaint: I NEED HELP TO STOP DRINKING ALCOHOL AND COCAINE Allergies/Adverse Reactions: Allergies Allergy/AdvReac Type Severity Reaction Status Date / Time No Known Allergies Allergy Verified 07/30/16 12:11 History of Present Illness: THIS 26 YEARS OLD MALE WITH ALCOHOL AND COCAINE DEPENDENCE,WITHDRAWAL SYMPTOM, LAST DETOX 07/26/16 TO 07/30/16 HIV SINCE 2012 NON COMPLIANCE ANXIETY AND DEPRESSION SYNCOPE ALCOHOL RELATED LONGEST PERIOD OF SOBRIETY 2 MONTHS Exam Limitations: No Limitations - Ebola screening Have you traveled outside of the country in the last 21 days: No Have you been sick,other than usual withdrawal symptoms: No - Review of Systems Constitutional: Loss of Appetite, Malaise, Night Sweats, Changes in sleep, Weakness EENT: reports: Nose Congestion Respiratory: reports: No Symptoms reported Cardiac: reports: No Symptoms Reported GI: reports: Diarrhea, Nausea, Vomiting, Abdominal cramping : reports: No Symptoms Reported Musculoskeletal: reports: Back Pain, Muscle Pain Integumentary: reports: Dryness Neuro: reports: Headache, Tremors Endocrine: reports: No Symptoms Reported Hematology: reports: No Symptoms Reported, Other (HIV) Psychiatric: reports: Anxious, Depressed Patient History - Patient Medical History Hx Anemia: No Hx Asthma: No Hx Chronic Obstructive Pulmonary Disease (COPD): No Hx Cancer: No Hx Cardiac Disorders: No Hx Congestive Heart Failure: No Hx Hypertension: No Hx Hypercholesterolemia: No Hx Pacemaker: No HX Cerebrovascular Accident: No Hx Seizures: No Hx Dementia: No Hx Diabetes: No Hx Gastrointestinal Disorders: No Hx Liver Disease: No Hx Genitourinary Disorders: No Hx Sexually Transmitted Disorders: Yes (HIV & SYPHYLLIS) Hx Renal Disease (ESRD): No Hx Thyroid Disease: No Hx Human Immunodeficiency Virus (HIV): Yes (SINCE 2012) Hx Hepatitis C: Yes (UNDERTHE CARE OF PMD) Hx Depression: Yes (ANXIETY) Hx Suicide Attempt: No Hx Bipolar Disorder: No Hx Schizophrenia: No Other Medical History: NO SUICIDAL,NO HOMICIDAL - Patient Surgical History Past Surgical History: No - PPD History Previous Implant?: Yes Documented Results: Negative w/proof Implanted On Prior [facility] Admission?: Yes Date: 07/28/16 Results: 0mm PPD to be Administered?: No - Smoking Cessation Smoking history: Current every day smoker Have you smoked in the past 12 months: Yes Aproximately how many cigarettes per day: 2 Cigars Per Day: 0 Hx Chewing Tobacco Use: No Initiated information on smoking cessation: Yes 'Breaking Loose' booklet given: 09/24/16 - Substance & Tx. History Hx Alcohol Use: Yes Hx Substance Use: Yes Substance Use Type: Alcohol, Cocaine Hx Substance Use Treatment: Yes ([facility] 07/26/16 TO 07/30/16) - Substances Abused Alcohol Route: Oral Frequency: Daily Amount used: 3-4 22OZ FOUR LOCO Age of first use: 17 Date of Last Use: 09/22/16 Cocaine Route: Smoking Frequency: Daily Amount used: $40 AND UP Age of first use: 23 Date of Last Use: 09/23/16 Family Disease History - Family Disease History Family Disease History: Diabetes: Grandparent, Father (ALCOHOL,), Heart Disease: Mother Admission Physical Exam [facility] - Vital Signs Vital Signs: Vital Signs - 24 hr 09/24/16 14:20 Temperature 97.4 F L Pulse Rate 92 H Respiratory 20 Rate Blood Pressure 123/70 - Physical General Appearance: Yes: Moderate Distress, Tremorous, Irritable, Sweating, Anxious HEENTM: Yes: Pharynx Normal, Nasal Congestion Respiratory: Yes: Lungs Clear, Normal Breath Sounds, No Respiratory Distress Neck: Yes: Within Normal Limits Breast: Yes: Within Normal Limits Cardiology: Yes: Within Normal Limits, Regular Rhythm, Regular Rate, S1, S2 Abdominal: Yes: Within Normal Limits, Normal Bowel Sounds, Non Tender, Flat, Soft Genitourinary: Yes: Within Normal Limits Back: Yes: Normal Inspection, Muscle Spasm Musculoskeletal: Yes: Back pain, Muscle Pain Extremities: Yes: Within Normal Limits, Normal Range of Motion, Tremors Neurological: Yes: scale technician II-XII NML intact, Fully Oriented, Alert, Motor Strength 5/5 Integumentary: Yes: Dry Lymphatic: Yes: Within Normal Limits - Diagnostic (1) Alcohol dependence with uncomplicated withdrawal Current Visit: No Status: Acute (2) Cocaine dependence Current Visit: No Status: Acute (3) Insomnia Current Visit: No Status: Acute (4) Nicotine dependence Current Visit: No Status: Acute Qualifiers: Nicotine product type: cigarettes Substance use status: uncomplicated Qualified Code(s): F17.210 - Nicotine dependence, cigarettes, uncomplicated (5) HIV (human immunodeficiency virus infection) Current Visit: No Status: Chronic (6) Hepatitis C antibody test positive Current Visit: No Status: Chronic Cleared for Admission S - Detox or Rehab [facility] Level of Care: Medically Managed Detox Regimen/Protocol: Valium S Breath Alcohol Content Breath Alcohol Content: 0 Urine Drug Screen - Results Drug Screen Negative: No Urine Drug Screen Results: HALIE-Cocaine, BZO-Benzodiazepines
[2016-09-24] MEDS ORDERED: MAGNESIUM CITRATE 300 ML BOTTLE PO PRN (17:49)
[2016-09-24] MEDS ORDERED: hydrOXYzine PAMOATE 25 MG CAPSULE (FP) PO PRN (17:49)
[2016-09-24] MEDS ORDERED: guaiFENesin/D-METHORPHAN HB 10 ML UNIT-DOSE CUPS PO PRN (17:49)
[2016-09-24] MEDS ORDERED: LOPERAMIDE HCL 2 MG CAPSULE PO PRN (17:49)
[2016-09-24] MEDS ORDERED: diphenhydrAMINE HCL 50 MG CAPSULE PO PRN (17:49)
[2016-09-24] MEDS ORDERED: IBUPROFEN 400 MG TABLET (FP) PO PRN (17:49)
[2016-09-24] MEDS ORDERED: MAGNESIUM HYDROX 2400MG/30ML ORAL SUSPENSION 30 ML CUP PO PRN (17:49)
[2016-09-24] MEDS ORDERED: P-EPHED 60MG/TRIPROLIDI 2.5MG TABLET PO PRN (17:49)
[2016-09-24] MEDS ORDERED: ACETAMINOPHEN 325 MG TABLET (FP) PO PRN (17:49)
[2016-09-24] MEDS ORDERED: MENTHOL/PHENOL 1 EACH UD MM PRN (17:49)
[2016-09-24] MEDS ORDERED: MAG HYDROX/AL HYDROX/SIMETH 30 ML UNIT-DOSE CUP PO PRN (17:49)
[2016-09-24] MEDS ORDERED: diazePAM 5 MG TABLET PO ONE (18:15)
[2016-09-24] MEDS: diazePAM 5 MG TABLET PO SCH (22:06)
[2016-09-24] MEDS: THIAMINE HCL 100 MG TABLET (FP) PO SCH (22:06)
[2016-09-24 22:48] LABS: URINE APPEARANCE CLEAR; URINE BILIRUBIN NEGATIVE (NEGATIVE); URINE BLOOD NEGATIVE (NEGATIVE); URINE COLOR LTYELLOW; URINE GLUCOSE (UA) 2+ (NEGATIVE); URINE KETONE NEGATIVE (NEGATIVE); URINE LEUK ESTERASE NEGATIVE (NEGATIVE); URINE NITRITE NEGATIVE (NEGATIVE); URINE PROTEIN NEGATIVE (NEGATIVE); URINE UROBILINOGEN NEGATIVE E.U./dl (0.2-1.0)
[2016-09-25] MEDS: diazePAM 5 MG TABLET PO SCH ×3 (05:38→22:06)
[2016-09-25] MEDS: diazePAM 5 MG TABLET PO PRN ×3 (08:45→17:33)
[2016-09-25] MEDS: PRENATAL VITAMINS W/ FOLIC ACID TABLET (FP) PO SCH (10:07)
[2016-09-25 10:29] LABS: MCH 30.8 pg (25.7-33.7); MCHC 32.6 g/dl (32.0-35.9); MEAN CELL VOLUME 94.7 fl (80-96); MEAN PLT VOLUME 10.5 fl (7.5-11.1); PLATELET COUNT 245 K/MM3 (134-434); RDW 14.4 % (11.9-15.9); WHITE BLOOD COUNT 6.3 K/mm3 (4.0-10.0)
[2016-09-25 11:17] LABS: ALBUMIN 4.1 g/dl (3.4-5.0); ALK PHOS 91 U/L (45-117); ANION GAP 11 (8-16); BILIRUBIN,TOTAL 0.5 mg/dL (0.2-1.0); CALCIUM 9.2 mg/dL (8.5-10.1); CO2 22 mmol/L (21-32); CREATININE 1.2 mg/dL (0.7-1.3); GLUCOSE,RANDOM 147 mg/dL (74-106); SGOT/AST 105 U/L (15-37); SGPT/ALT 150 U/L (12-78); TOT PROT 8.6 g/dl (6.4-8.2)
--- NOTE | 2016-09-25 11:37 | CONSULT ---
[facility] Psychiatric Consult - Data Date of interview: 09/25/16 Admission source: [facility] Identifying data: Readmission to [facility] for this 26 y/o AA male seeking detox treatment on for alcohol and cocaine dependence.Patient is single without children,domiciled,unemployed and supported on food stamps. Substance Abuse History: - Smoking Cessation. Smoking history: Current every day smoker. Have you smoked in the past 12 months: Yes. Aproximately how many cigarettes per day: 2. Cigars Per Day: 0. Hx Chewing Tobacco Use: No. Initiated information on smoking cessation: Yes. 'Breaking Loose' booklet given : 09/24/16. - Substance & Tx. History. Hx Alcohol Use: Yes. Hx Substance Use : Yes. Substance Use Type: Alcohol, Cocaine. Hx Substance Use Treatment: Yes ( [facility] 07/26/16 TO 07/30/16). - Substances Abused. Alcohol. Route: Oral. Frequency: Daily. Amount used: 3-4 22OZ FOUR LOCO. Age of first use: 17. Date of Last Use: 09/22/16. Cocaine. Route: Smoking. Frequency: Daily. Amount used: $40 AND UP. Age of first use: 23. Date of Last Use: 09/23/16. Confirmed by patient. Medical History: HIV infection since 2012,hepatitis C and a history of treatment for syphilis. Psychiatric History: History of one psychiatric hospitalization (2015) at [facility].Diagnosed with MDD and Anxiety Disorder.Mr Berrios reports that he sporadically attend psychotherapy sessions at the [facility],in [facility].Prescribed lexapro 20 mg/day + ambien 10 mg/ hs + xanax 6 mg/day (divided doses).Patient informs that he does not have a psychiatrist (own decision) and he has chosen to rely on his primary care doctor for refills of scripts.No reported history of suicide attempts. Physical/Sexual Abuse/Trauma History: Patient denies. Additional Comment: Urine Drug Screen Results: HALIE-Cocaine, BZO- Benzodiazepines.Noted. Mental Status Exam - Mental Status Exam Alert and Oriented to: Time, Place, Person Cognitive Function: Good Patient Appearance: Well Groomed Mood: Nervous, Apprehensive, Hopeful, Irritable Patient Behavior: Fatigued, Appropriate, Cooperative Speech Pattern: Clear Voice Loudness: Normal Thought Process: Goal Oriented Thought Disorder: Not Present Hallucinations: Denies Suicidal Ideation: Denies Homicidal Ideation: Denies Insight/Judgement: Poor Sleep: Poorly, Difficulty falling asleep Appetite: Good Muscle strength/Tone: Normal Gait/Station: Normal Psychiatric Findings - Problem List ([place] 1, 2,3) (1) Alcohol dependence with uncomplicated withdrawal Current Visit: Yes Status: Acute (2) Benzodiazepine dependence Current Visit: Yes Status: Acute (3) Cocaine dependence Current Visit: Yes Status: Acute (4) Nicotine dependence Current Visit: Yes Status: Acute Qualifiers: Nicotine product type: cigarettes Substance use status: uncomplicated Qualified Code(s): F17.210 - Nicotine dependence, cigarettes, uncomplicated (5) Substance induced mood disorder Current Visit: Yes Status: Acute (6) LASHONDA (generalized anxiety disorder) Current Visit: Yes Status: Acute (7) HIV (human immunodeficiency virus infection) Current Visit: Yes Status: Chronic (8) Hepatitis C antibody test positive Current Visit: Yes Status: Chronic (9) Insomnia Current Visit: Yes Status: Chronic - Initial Treatment Plan Initial Treatment Plan: Psychoeducation.Detoxification in progress.medications : lexapro 20 mg po daily + ambien 10 mg po hs prn.Side effects/benefits discussed with patient.He agrees with this careplan.Observation.
--- NOTE | 2016-09-25 11:42 | PN ---
S CIWA - CIWA Score Nausea/Vomitin-No Nausea/No Vomiting Muscle Tremors: 4-Moderate,w/Arms Extend Anxiety: 3 Agitation: 4-Moderately Restless Paroxysmal Sweats: 3 Orientation: 0-Oriented Tacttile Disturbances: 0-None Auditory Disturbances: 0-None Visual Disturbances: 0-None Headache: 0-None Present CIWA-Ar Total Score: 14 BHS Progress Note (SOAP) Subjective: Anxiety,tremors,sweating,interrupted sleep,restless Objective: 09/25/16 11:40 Vital Signs - 8 hr 09/25/16 09/25/16 06:17 09:22 Temperature 97.1 F L 96.4 F L Pulse Rate 75 93 H Respiratory 18 18 Rate Blood Pressure 119/77 141/82 Laboratory Tests 09/24/16 09/25/16 09/25/16 21:12 06:20 06:20 WBC 6.3 D RBC 5.15 Hgb 15.9 Hct 48.8 MCV 94.7 MCHC 32.6 RDW 14.4 Plt Count 245 MPV 10.5 Sodium 136 Potassium 4.0 Chloride 103 Carbon Dioxide 22 D Anion Gap 11 BUN 11 Creatinine 1.2 Creat Clearance w eGFR > 60 Random Glucose 147 H Calcium 9.2 Total Bilirubin 0.5 D AST 105 H ALT 150 H D Alkaline Phosphatase 91 Total Protein 8.6 H Albumin 4.1 Urine Color Ltyellow Urine Appearance Clear Urine pH 6.0 Ur Specific [place] 1.013 Urine Protein Negative Urine Glucose (UA) 2+ H Urine Ketones Negative Urine Blood Negative Urine Nitrite Negative Urine Bilirubin Negative Urine Urobilinogen Negative Ur Leukocyte Esterase Negative labs noted Assessment: 09/25/16 11:40 Withdrawal sx. Plan: Continue detox
[2016-09-25] MEDS ORDERED: IBUPROFEN 600 MG TABLET (FP) PO PRN (11:46)
[2016-09-25] MEDS: ESCITALOPRAM OXALATE 20 MG TABLET (FP) PO SCH (13:44)
--- NOTE | 2016-09-25 18:29 | EKG ---
Test Reason : Blood Pressure : / mmHG Vent. Rate : 072 BPM Atrial Rate : 072 BPM P-R Int : 148 ms QRS Dur : 092 ms QT Int : 368 ms P-R-T Axes : 015 -21 042 degrees QTc Int : 402 ms NORMAL SINUS RHYTHM INCOMPLETE RIGHT BUNDLE BRANCH BLOCK NONSPECIFIC T WAVE ABNORMALITY ABNORMAL ECG WHEN COMPARED WITH ECG OF 26-JUL-2016 18:35, NO SIGNIFICANT CHANGE WAS FOUND Confirmed by EMILY BERMAN MD ([id number]) on 09/25/2016 6:29:37 PM Referred By: Confirmed By:EMILY BERMAN MD
[2016-09-25] MEDS: THIAMINE HCL 100 MG TABLET (FP) PO SCH (22:05)
[2016-09-25] MEDS: ZOLPIDEM TARTRATE 10 MG TABLET (PARK CARE ONLY) PO PRN (22:06)
[2016-09-26] MEDS: diazePAM 5 MG TABLET PO PRN ×2 (05:36→13:08)
[2016-09-26] MEDS: PRENATAL VITAMINS W/ FOLIC ACID TABLET (FP) PO SCH (10:07)
[2016-09-26] MEDS: ESCITALOPRAM OXALATE 20 MG TABLET (FP) PO SCH (10:07)
[2016-09-26] MEDS: diazePAM 5 MG TABLET PO SCH ×2 (10:07→22:08)
--- NOTE | 2016-09-26 10:41 | PN ---
[facility] CIWA - CIWA Score Nausea/Vomitin-No Nausea/No Vomiting Muscle Tremors: 3 Anxiety: 4-Mod. Anxious/Guarded Agitation: 3 Paroxysmal Sweats: 3 Orientation: 0-Oriented Tacttile Disturbances: 0-None Auditory Disturbances: 0-None Visual Disturbances: 0-None Headache: 0-None Present CIWA-Ar Total Score: 13 S Progress Note (SOAP) Subjective: Sweating,anxiety,tremors,interrupted sleep,restless,muscle aches/spasm. Objective: 09/26/16 10:38 Vital Signs - 8 hr 09/26/16 09/26/16 09/26/16 03:30 06:22 09:33 Temperature 96.5 F L 98.4 F Pulse Rate 65 102 H Respiratory 18 18 18 Rate Blood Pressure 124/76 159/76 Laboratory Last Values WBC 6.3 K/mm3 (4.0-10.0) D 09/25/16 06:20 RBC 5.15 M/mm3 (4.00-5.60) 09/25/16 06:20 Hgb 15.9 GM/dL (11.7-16.9) 09/25/16 06:20 Hct 48.8 % (35.4-49) 09/25/16 06:20 MCV 94.7 fl (80-96) 09/25/16 06:20 MCHC 32.6 g/dl (32.0-35.9) 09/25/16 06:20 RDW 14.4 % (11.9-15.9) 09/25/16 06:20 Plt Count 245 K/MM3 (134-434) 09/25/16 06:20 MPV 10.5 fl (7.5-11.1) 09/25/16 06:20 Sodium 136 mmol/L (136-145) 09/25/16 06:20 Potassium 4.0 mmol/L (3.5-5.1) 09/25/16 06:20 Chloride 103 mmol/L (98-107) 09/25/16 06:20 Carbon Dioxide 22 mmol/L (21-32) D 09/25/16 06:20 Anion Gap 11 (8-16) 09/25/16 06:20 BUN 11 mg/dL (7-18) 09/25/16 06:20 Creatinine 1.2 mg/dL (0.7-1.3) 09/25/16 06:20 Creat Clearance w eGFR > 60 (>60) 09/25/16 06:20 Random Glucose 147 mg/dL (74-106) H 09/25/16 06:20 Calcium 9.2 mg/dL (8.5-10.1) 09/25/16 06:20 Total Bilirubin 0.5 mg/dL (0.2-1.0) D 09/25/16 06:20 AST 105 U/L (15-37) H 09/25/16 06:20 ALT 150 U/L (12-78) H D 09/25/16 06:20 Alkaline Phosphatase 91 U/L (45-117) 09/25/16 06:20 Total Protein 8.6 g/dl (6.4-8.2) H 09/25/16 06:20 Albumin 4.1 g/dl (3.4-5.0) 09/25/16 06:20 Urine Color Ltyellow 09/24/16 21:12 Urine Appearance Clear 09/24/16 21:12 Urine pH 6.0 (5.0-8.0) 09/24/16 21:12 Ur Specific [place] 1.013 (1.001-1.035) 09/24/16 21:12 Urine Protein Negative (NEGATIVE) 09/24/16 21:12 Urine Glucose (UA) 2+ (NEGATIVE) H 09/24/16 21:12 Urine Ketones Negative (NEGATIVE) 09/24/16 21:12 Urine Blood Negative (NEGATIVE) 09/24/16 21:12 Urine Nitrite Negative (NEGATIVE) 09/24/16 21:12 Urine Bilirubin Negative (NEGATIVE) 09/24/16 21:12 Urine Urobilinogen Negative E.U./dl (0.2-1.0) 09/24/16 21:12 Ur Leukocyte Esterase Negative (NEGATIVE) 09/24/16 21:12 RPR Titer Reactive 1:8 (NONREACTIVE) H 09/25/16 06:20 T.pallidum Ab (MHA) Previously reactive (NONREACTIVE) 09/25/16 06:20 labs noted,RPR was 1:4 in July now it's 1:8,we'll offer re-treatment to pt. .I discuss re-treatment with pt. but he refuses,he'll f/u with his MD Assessment: 09/26/16 10:40 Withdrawal sx. Syphillis Plan: Continue detox
[2016-09-26] MEDS: CYCLOBENZAPRINE HCL 10 MG TABLET (FP) PO SCH ×2 (13:08→22:08)
[2016-09-26] MEDS: THIAMINE HCL 100 MG TABLET (FP) PO SCH (22:08)
[2016-09-26] MEDS: ZOLPIDEM TARTRATE 10 MG TABLET (PARK CARE ONLY) PO PRN (22:08)
[2016-09-27] MEDS: CYCLOBENZAPRINE HCL 10 MG TABLET (FP) PO SCH ×3 (05:39→22:09)
[2016-09-27] MEDS: diazePAM 5 MG TABLET PO PRN ×2 (05:39→17:27)
[2016-09-27] MEDS: PRENATAL VITAMINS W/ FOLIC ACID TABLET (FP) PO SCH (10:26)
[2016-09-27] MEDS: ESCITALOPRAM OXALATE 20 MG TABLET (FP) PO SCH (10:26)
[2016-09-27] MEDS: diazePAM 5 MG TABLET PO SCH ×2 (10:26→22:09)
--- NOTE | 2016-09-27 13:02 | PN ---
BHS Progress Note (SOAP) Subjective: Sweating,interrupted sleep,restless Objective: 09/27/16 13:00 Vital Signs - 8 hr 09/27/16 09/27/16 06:09 10:19 Temperature 96.5 F L 97.3 F L Pulse Rate 71 87 Respiratory 18 18 Rate Blood Pressure 128/73 124/71 Laboratory Last Values WBC 6.3 K/mm3 (4.0-10.0) D 09/25/16 06:20 RBC 5.15 M/mm3 (4.00-5.60) 09/25/16 06:20 Hgb 15.9 GM/dL (11.7-16.9) 09/25/16 06:20 Hct 48.8 % (35.4-49) 09/25/16 06:20 MCV 94.7 fl (80-96) 09/25/16 06:20 MCHC 32.6 g/dl (32.0-35.9) 09/25/16 06:20 RDW 14.4 % (11.9-15.9) 09/25/16 06:20 Plt Count 245 K/MM3 (134-434) 09/25/16 06:20 MPV 10.5 fl (7.5-11.1) 09/25/16 06:20 Sodium 136 mmol/L (136-145) 09/25/16 06:20 Potassium 4.0 mmol/L (3.5-5.1) 09/25/16 06:20 Chloride 103 mmol/L (98-107) 09/25/16 06:20 Carbon Dioxide 22 mmol/L (21-32) D 09/25/16 06:20 Anion Gap 11 (8-16) 09/25/16 06:20 BUN 11 mg/dL (7-18) 09/25/16 06:20 Creatinine 1.2 mg/dL (0.7-1.3) 09/25/16 06:20 Creat Clearance w eGFR > 60 (>60) 09/25/16 06:20 Random Glucose 147 mg/dL (74-106) H 09/25/16 06:20 Calcium 9.2 mg/dL (8.5-10.1) 09/25/16 06:20 Total Bilirubin 0.5 mg/dL (0.2-1.0) D 09/25/16 06:20 AST 105 U/L (15-37) H 09/25/16 06:20 ALT 150 U/L (12-78) H D 09/25/16 06:20 Alkaline Phosphatase 91 U/L (45-117) 09/25/16 06:20 Total Protein 8.6 g/dl (6.4-8.2) H 09/25/16 06:20 Albumin 4.1 g/dl (3.4-5.0) 09/25/16 06:20 Urine Color Ltyellow 09/24/16 21:12 Urine Appearance Clear 09/24/16 21:12 Urine pH 6.0 (5.0-8.0) 09/24/16 21:12 Ur Specific [place] 1.013 (1.001-1.035) 09/24/16 21:12 Urine Protein Negative (NEGATIVE) 09/24/16 21:12 Urine Glucose (UA) 2+ (NEGATIVE) H 09/24/16 21:12 Urine Ketones Negative (NEGATIVE) 09/24/16 21:12 Urine Blood Negative (NEGATIVE) 09/24/16 21:12 Urine Nitrite Negative (NEGATIVE) 09/24/16 21:12 Urine Bilirubin Negative (NEGATIVE) 09/24/16 21:12 Urine Urobilinogen Negative E.U./dl (0.2-1.0) 09/24/16 21:12 Ur Leukocyte Esterase Negative (NEGATIVE) 09/24/16 21:12 RPR Titer Reactive 1:8 (NONREACTIVE) H 09/25/16 06:20 T.pallidum Ab (MHA) Previously reactive (NONREACTIVE) 09/25/16 06:20 previously treated for syphillis Assessment: 09/27/16 13:01 Withdrawal sx. Plan: Continue detox
[2016-09-27] MEDS: ZOLPIDEM TARTRATE 10 MG TABLET (PARK CARE ONLY) PO PRN (21:53)
[2016-09-27] MEDS: THIAMINE HCL 100 MG TABLET (FP) PO SCH (22:08)
[2016-09-28] MEDS: CYCLOBENZAPRINE HCL 10 MG TABLET (FP) PO SCH (05:39)
[2016-09-28 05:56] VITALS: BP 138/75; PULSE 75; TEMP 96.7
--- NOTE | 2016-09-28 09:52 | DS ---
[facility] Detox Discharge Summary Admission Date: 09/24/16 Discharge Date: 09/28/16 - History Present History: Alcohol Dependence, Cocaine Dependence, Sedative Dependence Pertinent Past History: HIV Hep C - Physical Exam Results Vital Signs: Vital Signs Temperature 96.7 F L 09/28/16 05:56 Pulse Rate 75 09/28/16 05:56 Respiratory Rate 18 09/28/16 05:56 Blood Pressure 138/75 09/28/16 05:56 O2 Sat by Pulse Oximetry (%) Pertinent Admission Physical Exam Findings: Withdrawal sx. Vital Signs - 8 hr 09/28/16 09/28/16 09/28/16 02:09 03:21 05:56 Temperature 96.7 F L Pulse Rate 75 Respiratory 18 18 18 Rate Blood Pressure 138/75 Laboratory Last Values WBC 6.3 K/mm3 (4.0-10.0) D 09/25/16 06:20 RBC 5.15 M/mm3 (4.00-5.60) 09/25/16 06:20 Hgb 15.9 GM/dL (11.7-16.9) 09/25/16 06:20 Hct 48.8 % (35.4-49) 09/25/16 06:20 MCV 94.7 fl (80-96) 09/25/16 06:20 MCHC 32.6 g/dl (32.0-35.9) 09/25/16 06:20 RDW 14.4 % (11.9-15.9) 09/25/16 06:20 Plt Count 245 K/MM3 (134-434) 09/25/16 06:20 MPV 10.5 fl (7.5-11.1) 09/25/16 06:20 Sodium 136 mmol/L (136-145) 09/25/16 06:20 Potassium 4.0 mmol/L (3.5-5.1) 09/25/16 06:20 Chloride 103 mmol/L (98-107) 09/25/16 06:20 Carbon Dioxide 22 mmol/L (21-32) D 09/25/16 06:20 Anion Gap 11 (8-16) 09/25/16 06:20 BUN 11 mg/dL (7-18) 09/25/16 06:20 Creatinine 1.2 mg/dL (0.7-1.3) 09/25/16 06:20 Creat Clearance w eGFR > 60 (>60) 09/25/16 06:20 Random Glucose 147 mg/dL (74-106) H 09/25/16 06:20 Calcium 9.2 mg/dL (8.5-10.1) 09/25/16 06:20 Total Bilirubin 0.5 mg/dL (0.2-1.0) D 09/25/16 06:20 AST 105 U/L (15-37) H 09/25/16 06:20 ALT 150 U/L (12-78) H D 09/25/16 06:20 Alkaline Phosphatase 91 U/L (45-117) 09/25/16 06:20 Total Protein 8.6 g/dl (6.4-8.2) H 09/25/16 06:20 Albumin 4.1 g/dl (3.4-5.0) 09/25/16 06:20 Urine Color Ltyellow 09/24/16 21:12 Urine Appearance Clear 09/24/16 21:12 Urine pH 6.0 (5.0-8.0) 09/24/16 21:12 Ur Specific [place] 1.013 (1.001-1.035) 09/24/16 21:12 Urine Protein Negative (NEGATIVE) 09/24/16 21:12 Urine Glucose (UA) 2+ (NEGATIVE) H 09/24/16 21:12 Urine Ketones Negative (NEGATIVE) 09/24/16 21:12 Urine Blood Negative (NEGATIVE) 09/24/16 21:12 Urine Nitrite Negative (NEGATIVE) 09/24/16 21:12 Urine Bilirubin Negative (NEGATIVE) 09/24/16 21:12 Urine Urobilinogen Negative E.U./dl (0.2-1.0) 09/24/16 21:12 Ur Leukocyte Esterase Negative (NEGATIVE) 09/24/16 21:12 RPR Titer Reactive 1:8 (NONREACTIVE) H 09/25/16 06:20 T.pallidum Ab (MHA) Previously reactive (NONREACTIVE) 09/25/16 06:20 labs noted - Treatment Hospital Course: Detox Protocol Followed, Detoxed Safely, Responded well, Discharged Condition Good, Rehab Referral Accepted Patient has Accepted a Rehab Referral to: [facility] - Medication Discharge Medications: Ambulatory Orders Escitalopram Oxalate [Lexapro -] 20 mg PO DAILY 09/24/16 Zolpidem Tartrate [Ambien] 10 mg PO HS 09/24/16 Escitalopram Oxalate [Lexapro -] 20 mg PO DAILY #30 tablet 09/25/16 - Diagnosis (1) Alcohol dependence with uncomplicated withdrawal Current Visit: Yes Status: Acute (2) Cocaine dependence Current Visit: Yes Status: Acute Qualifiers: Substance use status: uncomplicated Qualified Code(s): F14.20 - Cocaine dependence, uncomplicated (3) Nicotine dependence Current Visit: Yes Status: Acute Qualifiers: Nicotine product type: cigarettes Substance use status: uncomplicated Qualified Code(s): F17.210 - Nicotine dependence, cigarettes, uncomplicated (4) HIV (human immunodeficiency virus infection) Current Visit: Yes Status: Chronic (5) Hepatitis C antibody test positive Current Visit: Yes Status: Chronic (6) Insomnia Current Visit: Yes Status: Chronic (7) LASHONDA (generalized anxiety disorder) Current Visit: Yes Status: Acute (8) Substance induced mood disorder Current Visit: Yes Status: Acute - AMA Did Patient Leave Against Medical Advice: No
[2016-09-28] MEDS ORDERED: diazePAM 5 MG TABLET PO SCH (10:00)
[2016-09-28] MEDS: PRENATAL VITAMINS W/ FOLIC ACID TABLET (FP) PO SCH (10:03)
[2016-09-28] MEDS: ESCITALOPRAM OXALATE 20 MG TABLET (FP) PO SCH (10:03)
--- NOTE | 2016-09-30 19:54 | HP ---
HUYEN PERALES Rehab Assess/Revision - Admission History Admitted to Rehab from: [facility] [place] Date of Admission to Rehab: 09/30/16 - Findings Detox History & Physical reviewed: Yes Concur with findings: Yes Comments/Additional Findings: for rehab as protocol,patient was admitted in detox in [address] [place] [address] from 09/24/16 to 09/28/16.rayna last 0.024. medically clear to go to rehab
== END 2016-09-28 11:28 | disposition home or self-care (01) | DRG 774 ==
LOC: YASAS 12:44 → Y3N 18:05
PROVIDERS: ADMIT Internal Medicine; ATTEND Internal Medicine
PROC: HZ2ZZZZ Detoxification Services for Substance Abuse Treatment (ICD-10-PCS; principal; 2016-09-28)
DX: F13.230 Sedative, hypnotic or anxiolytic dependence with withdrawal, uncomplicated (principal); F10.230 Alcohol dependence with withdrawal, uncomplicated; F14.20 Cocaine dependence, uncomplicated; F17.210 Nicotine dependence, cigarettes, uncomplicated; F19.24 Other psychoactive substance dependence with psychoactive substance-induced mood disorder; G47.00 Insomnia, unspecified; Z21 Asymptomatic human immunodeficiency virus [HIV] infection status; B18.2 Chronic viral hepatitis C
CPT/HCPCS: 36415; 80053; 81003; 85027; 86593; 86780; 93005; 93010

== ENCOUNTER 2016-09-30 16:38 | Inpatient (IN) | payer OTHER ==
[2016-09-30 16:44] VITALS: BMI 29.3
[2016-09-30] MEDS ORDERED: guaiFENesin/D-METHORPHAN HB 10 ML UNIT-DOSE CUPS PO PRN (19:57)
[2016-09-30] MEDS ORDERED: P-EPHED 60MG/TRIPROLIDI 2.5MG TABLET PO PRN (19:57)
[2016-09-30] MEDS ORDERED: MENTHOL/PHENOL 1 EACH UD MM PRN (19:57)
[2016-09-30] MEDS ORDERED: ACETAMINOPHEN 325 MG TABLET (FP) PO PRN (19:57)
[2016-09-30] MEDS ORDERED: LOPERAMIDE HCL 2 MG CAPSULE PO PRN (19:57)
[2016-09-30] MEDS ORDERED: MAGNESIUM CITRATE 300 ML BOTTLE PO PRN (19:57)
[2016-09-30] MEDS ORDERED: IBUPROFEN 400 MG TABLET (FP) PO PRN (19:57)
[2016-09-30] MEDS ORDERED: MAGNESIUM HYDROX 2400MG/30ML ORAL SUSPENSION 30 ML CUP PO PRN (19:57)
[2016-09-30] MEDS ORDERED: MAG HYDROX/AL HYDROX/SIMETH 30 ML UNIT-DOSE CUP PO PRN (19:57)
--- NOTE | 2016-09-30 19:57 | HP ---
HUYEN PERALES Rehab Assess/Revision - Admission History Ad[facility] to Rehab [facility]: [facility] Date of Admission to Rehab: 09/30/16 - Vital signs Vital Signs: Vital Signs Period Temp Pulse Resp BP Sys/Castillo Pulse Ox Last 24 Hr 98 F 68 18 131/73 - Findings Detox History & Physical reviewed: Yes Concur with findings: Yes Comments/Additional Findings: for rehab as protocol,patient admitted in detox from 09/24/16 to 09/28/16. medically clear to be admitted to rehab. last rayna is 0.024
[2016-09-30] MEDS: THIAMINE HCL 100 MG TABLET (FP) PO SCH (21:34)
[2016-09-30] MEDS: hydrOXYzine PAMOATE 50 MG CAPSULE (FP) PO PRN (22:24)
[2016-09-30 22:33] LABS: URINE APPEARANCE CLEAR; URINE BILIRUBIN NEGATIVE (NEGATIVE); URINE BLOOD NEGATIVE (NEGATIVE); URINE COLOR STRAW; URINE GLUCOSE (UA) 1+ (NEGATIVE); URINE KETONE NEGATIVE (NEGATIVE); URINE LEUK ESTERASE NEGATIVE (NEGATIVE); URINE NITRITE NEGATIVE (NEGATIVE); URINE PROTEIN NEGATIVE (NEGATIVE); URINE UROBILINOGEN NEGATIVE E.U./dl (0.2-1.0)
--- NOTE | 2016-10-01 06:42 | HP ---
Psychiatrist Admission - Data Date of interview: 10/01/16 Admission source: 3N Identifying data: This is the second [facility] admission for this 26 years old single Black male, unemployed on food stamp, homeless seeking rehab treatment for alcohol and cocaine Medical History: Significant for HIV infection since 2012, hepatitis C and a history of treatment for syphilis. Smokes 2 cigarettes daily Psychiatric History: Reports that his first psychiatric contact was in 2015 when he was brought to [facility] ED for intoxication. From there he was admitted to a psychiatric unit for depression and anxiety and treated with Zoloft.The description of his anxiety symptoms is consistent with Panic Disorder ( palpitaion, SOB, tingling, numbness of extrmities, feeling of doom,episode last roughly 5 minutes) He was discharged after 13 days and referred to [facility] in [place]. There, in addition to psychotherapy, he was seeing a psychiatrist who initially prescribed him Zoloft then switched to Lexapro 20 mg po daily due to sexual side-effects from Zoloft. He was prescribed Xanax 2 mg po TID and Ambien 10 mg po HS as well. He attended that clinic for approximaly 6 months. However, he continued to have his medications prescribed by his PCP. While admitted to rehab at this facility in July 2016 , he was prescribed Gabapentin and Buspar to compensate for Xanax. He said that combination made him very drowsy, sleepy and had difficulty attending group. In his recent admission to detox he was prescribed Lexapro 20 mg po daily and Ambien [address] Pratt in addition to Vistaril prn. At present, reports feeling anxious. Claims that he experienced his last episode of anxiety attack while in detox Physical/Sexual Abuse/Trauma History: Denies history of emotional, physical or sexual abuse as well as DV relationship Additional Comment: Reports history of one misdemeanor arrest for marijuana possession. Denies being on probation at present Vital Signs: Vital Signs - 24 hr 09/30/16 10/01/16 10/01/16 16:41 00:30 03:30 Temperature 98 F Pulse Rate 68 Respiratory 18 18 20 Rate Blood Pressure 131/73 Allergies/Adverse Reactions: Allergies Allergy/AdvReac Type Severity Reaction Status Date / Time No Known Allergies Allergy Verified 09/30/16 20:09 Date of last physical exam: 09/24/16 Concur with the findings of this exam: Yes - Substance Abuse/Tx History Hx Alcohol Use: Yes Hx Substance Use: Yes Substance Use Type: Alcohol (Started drinking alcohol at age 17, consumes 3-4x 22oz of four loco daily. Last drink on 09/22/16), Cocaine (Started smoking crack cocaine at age 23, consumes $40 worth daily. Last smoked on 09/23/16) Hx Substance Use Treatment: Yes (2 previous inpt detox & one inpt rehab @ [facility]) - Admission Criteria Previous failed treatment: No Poor recovery environment: Yes Comorbidities: Yes Lacks judgement: Yes Mental Status Exam - Mental Status Exam Alert and Oriented to: Time, Place, Person Cognitive Function: Fair Patient Appearance: Well Groomed Mood: Anxious Affect: Appropriate Patient Behavior: Cooperative Speech Pattern: Clear Voice Loudness: Normal Thought Process: Intact Thought Disorder: Not Present Hallucinations: Denies Suicidal Ideation: Denies Homicidal Ideation: Denies Insight/Judgement: Fair Sleep: Fair Appetite: Fair Muscle strength/Tone: Normal Gait/Station: Normal Psychiatric Findings - Problem List ([place] 1, 2,3) (1) Alcohol dependence Current Visit: No Status: Acute (2) Cocaine dependence Current Visit: No Status: Acute Qualifiers: Substance use status: uncomplicated Qualified Code(s): F14.20 - Cocaine dependence, uncomplicated (3) Nicotine dependence Current Visit: No Status: Acute Qualifiers: Nicotine product type: cigarettes Substance use status: uncomplicated Qualified Code(s): F17.210 - Nicotine dependence, cigarettes, uncomplicated (4) Anxiety disorder Current Visit: Yes Status: Acute (5) Panic disorder with agoraphobia Current Visit: Yes Status: Ruled-out (6) LASHONDA (generalized anxiety disorder) Current Visit: No Status: Ruled-out (7) Benign heart murmur Current Visit: No Status: Chronic (8) HIV (human immunodeficiency virus infection) Current Visit: No Status: Chronic (9) Hepatitis C antibody test positive Current Visit: No Status: Chronic - Initial Treatment Plan Initial Treatment Plan: 1) Continue Lexapro 20 mg po daily. 2) Monitor progress
[2016-10-01] MEDS: ESCITALOPRAM OXALATE 20 MG TABLET (FP) PO SCH (10:23)
[2016-10-01] MEDS: PRENATAL VITAMINS W/ FOLIC ACID TABLET (FP) PO SCH (10:23)
[2016-10-01] MEDS: hydrOXYzine PAMOATE 50 MG CAPSULE (FP) PO PRN ×3 (10:24→20:08)
[2016-10-01] MEDS: THIAMINE HCL 100 MG TABLET (FP) PO SCH (21:43)
[2016-10-01] MEDS: diphenhydrAMINE HCL 50 MG CAPSULE PO PRN (21:43)
[2016-10-02] MEDS: ESCITALOPRAM OXALATE 20 MG TABLET (FP) PO SCH (10:03)
[2016-10-02] MEDS: hydrOXYzine PAMOATE 50 MG CAPSULE (FP) PO PRN ×3 (10:24→21:40)
[2016-10-02] MEDS ORDERED: PT OWN MED DRAWER 7, Y5N ONE (10:24)
[2016-10-02] MEDS: PRENATAL VITAMINS W/ FOLIC ACID TABLET (FP) PO SCH (10:25)
[2016-10-02 11:10] LABS: ALBUMIN 3.2 g/dl (3.4-5.0); ALK PHOS 89 U/L (45-117); ANION GAP 8 (8-16); BILIRUBIN,TOTAL 0.4 mg/dL (0.2-1.0); CALCIUM 8.4 mg/dL (8.5-10.1); CO2 27 mmol/L (21-32); GLUCOSE,RANDOM 96 mg/dL (74-106); SGOT/AST 51 U/L (15-37); SGPT/ALT 82 U/L (12-78); TOT PROT 6.9 g/dl (6.4-8.2)
--- NOTE | 2016-10-02 12:30 | EKG ---
Test Reason : Blood Pressure : / mmHG Vent. Rate : 100 BPM Atrial Rate : 100 BPM P-R Int : 152 ms QRS Dur : 096 ms QT Int : 338 ms P-R-T Axes : 032 014 061 degrees QTc Int : 436 ms NORMAL SINUS RHYTHM INCOMPLETE RIGHT BUNDLE BRANCH BLOCK NONSPECIFIC T WAVE ABNORMALITY ABNORMAL ECG WHEN COMPARED WITH ECG OF 24-SEP-2016 18:08, NO SIGNIFICANT CHANGE WAS FOUND Confirmed by BARNEY PERALES, LOUISE ([id number]) on 10/02/2016 12:30:17 PM Referred By: Bernard Villa Confirmed By:LOUISE CORLEY MD
[2016-10-02] MEDS: THIAMINE HCL 100 MG TABLET (FP) PO SCH (21:39)
[2016-10-03] MEDS: hydrOXYzine PAMOATE 50 MG CAPSULE (FP) PO PRN ×3 (06:01→20:03)
[2016-10-03] MEDS ORDERED: PT OWN MED DRAWER 7, Y5N ONE (09:03)
[2016-10-03] MEDS: PRENATAL VITAMINS W/ FOLIC ACID TABLET (FP) PO SCH (10:30)
[2016-10-03] MEDS: ESCITALOPRAM OXALATE 20 MG TABLET (FP) PO SCH (10:30)
[2016-10-03] MEDS: diphenhydrAMINE HCL 50 MG CAPSULE PO PRN (21:48)
[2016-10-03] MEDS: THIAMINE HCL 100 MG TABLET (FP) PO SCH (21:48)
[2016-10-04] MEDS: hydrOXYzine PAMOATE 50 MG CAPSULE (FP) PO PRN ×2 (07:35→19:40)
[2016-10-04] MEDS ORDERED: ESCITALOPRAM OXALATE 10 MG TABLET (FP) PO SCH (09:11)
[2016-10-04] MEDS: PRENATAL VITAMINS W/ FOLIC ACID TABLET (FP) PO SCH (10:05)
[2016-10-04] MEDS: ESCITALOPRAM OXALATE 20 MG TABLET (FP) PO SCH (10:05)
[2016-10-04] MEDS: diphenhydrAMINE HCL 50 MG CAPSULE PO PRN ×2 (21:31→22:23)
[2016-10-04] MEDS: THIAMINE HCL 100 MG TABLET (FP) PO SCH (21:31)
[2016-10-05] MEDS: hydrOXYzine PAMOATE 50 MG CAPSULE (FP) PO PRN ×3 (06:10→22:10)
[2016-10-05] MEDS ORDERED: PT OWN MED DRAWER 7, Y5N ONE (08:58)
[2016-10-05] MEDS: ESCITALOPRAM OXALATE 20 MG TABLET (FP) PO SCH (10:12)
[2016-10-05] MEDS: PRENATAL VITAMINS W/ FOLIC ACID TABLET (FP) PO SCH (10:12)
[2016-10-05] MEDS: THIAMINE HCL 100 MG TABLET (FP) PO SCH (21:41)
[2016-10-05] MEDS: traZODone HCL 100 MG TABLET (FP) PO SCH (21:41)
[2016-10-06] MEDS: hydrOXYzine PAMOATE 50 MG CAPSULE (FP) PO PRN (06:11)
[2016-10-06] MEDS ORDERED: PT OWN MED DRAWER 7, Y5N ONE (08:59)
[2016-10-06] MEDS: PRENATAL VITAMINS W/ FOLIC ACID TABLET (FP) PO SCH (10:23)
[2016-10-06] MEDS: ESCITALOPRAM OXALATE 20 MG TABLET (FP) PO SCH (10:23)
[2016-10-06] MEDS: traZODone HCL 100 MG TABLET (FP) PO SCH (21:52)
[2016-10-06] MEDS: diphenhydrAMINE HCL 50 MG CAPSULE PO PRN (21:52)
[2016-10-06] MEDS: THIAMINE HCL 100 MG TABLET (FP) PO SCH (21:53)
[2016-10-07] MEDS: hydrOXYzine PAMOATE 50 MG CAPSULE (FP) PO PRN (06:25)
[2016-10-07] MEDS ORDERED: PT OWN MED DRAWER 7, Y5N ONE (09:03)
[2016-10-07] MEDS: ESCITALOPRAM OXALATE 20 MG TABLET (FP) PO SCH (10:05)
[2016-10-07] MEDS: PRENATAL VITAMINS W/ FOLIC ACID TABLET (FP) PO SCH (10:05)
[2016-10-07] MEDS: THIAMINE HCL 100 MG TABLET (FP) PO SCH (21:48)
[2016-10-07] MEDS: traZODone HCL 100 MG TABLET (FP) PO SCH (21:48)
[2016-10-07] MEDS: diphenhydrAMINE HCL 50 MG CAPSULE PO PRN (21:48)
[2016-10-08] MEDS: hydrOXYzine PAMOATE 50 MG CAPSULE (FP) PO PRN ×2 (06:30→21:25)
[2016-10-08] MEDS: PRENATAL VITAMINS W/ FOLIC ACID TABLET (FP) PO SCH (10:20)
[2016-10-08] MEDS: ESCITALOPRAM OXALATE 20 MG TABLET (FP) PO SCH (10:20)
[2016-10-08] MEDS: traZODone HCL 100 MG TABLET (FP) PO SCH (21:24)
[2016-10-08] MEDS: THIAMINE HCL 100 MG TABLET (FP) PO SCH (21:24)
[2016-10-08] MEDS: diphenhydrAMINE HCL 50 MG CAPSULE PO PRN (21:25)
[2016-10-09] MEDS: hydrOXYzine PAMOATE 50 MG CAPSULE (FP) PO PRN ×2 (06:46→20:13)
[2016-10-09] MEDS: ESCITALOPRAM OXALATE 20 MG TABLET (FP) PO SCH (10:16)
[2016-10-09] MEDS: PRENATAL VITAMINS W/ FOLIC ACID TABLET (FP) PO SCH (10:16)
--- NOTE | 2016-10-09 20:44 | PN ---
S Progress Note Note: ASKED TO SEE PT FOR C/O SORE THROAT X 2 DAYS. PT REPORTS PAIN TO THROAT. THIS IS DAY 2. DIFFICULTY SWALLOWING DUE TO PAIN. DENIES FEVER, CHILLS, SOB,. 0- PHARYNX SLIGHT ERYTHEMA NO EXUDATE NECK NO LAD CHEST- CTAB Vital Signs - 24 hr 10/09/16 10/09/16 10/09/16 00:30 03:30 06:30 Temperature 97.6 F Pulse Rate 80 Respiratory 18 18 18 Rate Blood Pressure 128/73 10/09/16 20:12 Temperature 99.1 F Pulse Rate Respiratory Rate Blood Pressure A- 26 Y.O. MALE WITH H/O HIV NOT ON ARV NOW WITH PHARYNGITIS AND LOW GRADE TEMP. START AMOXICILLIN 500MG PO BID X 10 DAYS CONT CEPACOL TYLENOL/MOTRIN FOR PAIN AND FEVER
[2016-10-09] MEDS: THIAMINE HCL 100 MG TABLET (FP) PO SCH (21:18)
[2016-10-09] MEDS: traZODone HCL 100 MG TABLET (FP) PO SCH (21:18)
[2016-10-09] MEDS: AMOXICILLIN 500 MG CAPSULE (FP) PO SCH (21:18)
[2016-10-10] MEDS: ESCITALOPRAM OXALATE 20 MG TABLET (FP) PO SCH (10:21)
[2016-10-10] MEDS: PRENATAL VITAMINS W/ FOLIC ACID TABLET (FP) PO SCH (10:21)
[2016-10-10] MEDS: AMOXICILLIN 500 MG CAPSULE (FP) PO SCH ×2 (10:21→21:09)
[2016-10-10] MEDS: hydrOXYzine PAMOATE 50 MG CAPSULE (FP) PO PRN ×2 (13:40→20:28)
[2016-10-10] MEDS: THIAMINE HCL 100 MG TABLET (FP) PO SCH (21:09)
[2016-10-10] MEDS: traZODone HCL 100 MG TABLET (FP) PO SCH (21:09)
[2016-10-11] MEDS: AMOXICILLIN 500 MG CAPSULE (FP) PO SCH ×2 (10:26→21:18)
[2016-10-11] MEDS: PRENATAL VITAMINS W/ FOLIC ACID TABLET (FP) PO SCH (10:26)
[2016-10-11] MEDS: ESCITALOPRAM OXALATE 20 MG TABLET (FP) PO SCH (10:26)
--- NOTE | 2016-10-11 11:30 | PN ---
Psychiatric Progress Note Vital Signs: Vital Signs Period Temp Pulse Resp BP Sys/Castillo Pulse Ox Last 24 Hr 98.2 F-99.3 F 81-86 16-20 134-143/78-82 Date of Session: 10/04/16 Chief Complaint:: Insomnia HPI: Patient addressing Alcohol and Cocaine Dependence comorbid with Nicotine Dependence and Anxiety Disorder ROS: HIV, Hep C and Benign heart murmur Current Medications: Active Medications Generic Name Dose Route Start Last Admin Trade Name Freq PRN Reason Stop Dose Admin Acetaminophen 650 mg 09/30/16 19:57 Tylenol - PO Q4H PRN PAIN Al Hydroxide/Mg Hydroxide 30 ml 09/30/16 19:57 Mylanta Oral Suspension - PO Q6H PRN DYSPEPSIA Amoxicillin 500 mg 10/09/16 22:00 10/11/16 10:26 Amoxicillin - PO 10/19/16 21:59 500 mg BID SARA Administration Diphenhydramine HCl 50 mg 09/30/16 19:57 10/08/16 21:25 Benadryl - PO 50 mg HSMR1 PRN Administration INSOMNIA Escitalopram Oxalate 20 mg 10/04/16 09:12 10/11/16 10:26 Lexapro - PO 20 mg DAILY SARA Administration Eucalyptus/Menthol/Phenol/Sorbitol 1 each 09/30/16 19:57 10/09/16 06:48 Cepastat Lozenge - MM 1 each Q4H PRN Administration SORE THROAT Guaifenesin 10 ml 09/30/16 19:57 Robitussin Dm - PO Q6H PRN COUGH Hydroxyzine Pamoate 50 mg 09/30/16 19:57 10/10/16 20:28 Vistaril - PO 50 mg Q4H PRN Administration AGITATION Ibuprofen 400 mg 09/30/16 19:57 Motrin - PO Q6H PRN SEVERE PAIN Loperamide HCl 4 mg 09/30/16 19:57 Imodium - PO Q6H PRN DIARRHEA Magnesium Citrate 300 ml 09/30/16 19:57 Citroma - PO Q48H PRN CONSTIPATION Magnesium Hydroxide 30 ml 09/30/16 19:57 Milk Of Magnesia - PO DAILY PRN CONSTIPATION Multivit/Folic Acid/Iron 1 tab 10/01/16 10:00 10/11/16 10:26 Vitamins (Sjr) - PO 1 tab DAILY SARA Administration Pseudoephedrine/Triprolidine 1 combo 09/30/16 19:57 Actifed - PO TID PRN NASAL CONGESTION Thiamine HCl 100 mg 09/30/16 22:00 10/10/16 21:09 Vitamin B1 - PO 100 mg HS SARA Administration Trazodone HCl 100 mg 10/05/16 22:00 10/10/16 21:09 Desyrel - PO 100 mg HS SARA Administration Medication(s) Change(s): Start Trazadone 100 mg po HS prn for insomnia Current Side Effect: No Provider note:: Patient reports experiencing difficulty to sleep. Told racebook writer that he has been sleeeping poorly despitetaking Benadryl. He wants to be prescribed something stronger. Benefits vs Risks of Trazadone discussed with patient and he agreed to try it Total face to face time:: 25 Mental Status Exam - Mental Status Exam Alert and Oriented to: Time, Place, Person Cognitive Function: Fair Patient Appearance: Well Groomed Mood: Hopeful, Euthymic Affect: Appropriate Patient Behavior: Cooperative Speech Pattern: Clear Voice Loudness: Normal Thought Process: Intact Thought Disorder: Not Present Hallucinations: Denies Suicidal Ideation: Denies Homicidal Ideation: Denies Insight/Judgement: Fair Sleep: Poorly Appetite: Good Muscle strength/Tone: Normal Gait/Station: Normal Psychiatric Treatment Plan - Problem List (1) Alcohol dependence Current Visit: No (2) Cocaine dependence Current Visit: No Qualifiers: Substance use status: uncomplicated Qualified Code(s): F14.20 - Cocaine dependence, uncomplicated (3) Nicotine dependence Current Visit: No Qualifiers: Nicotine product type: cigarettes Substance use status: uncomplicated Qualified Code(s): F17.210 - Nicotine dependence, cigarettes, uncomplicated (4) Anxiety disorder Current Visit: Yes (5) Panic disorder with agoraphobia Current Visit: Yes (6) LASHONDA (generalized anxiety disorder) Current Visit: No (7) Benign heart murmur Current Visit: No (8) HIV (human immunodeficiency virus infection) Current Visit: No (9) Hepatitis C antibody test positive Current Visit: No Initial treatment plan: 1) Start Trazadone 100 mg po HS for insomnia. 2) Monitor progress
[2016-10-11] MEDS ORDERED: SODIUM CHLORIDE NASAL SPRAY 44 ML BOTTLE NS PRN (14:38)
[2016-10-11] MEDS: hydrOXYzine PAMOATE 50 MG CAPSULE (FP) PO PRN (18:34)
[2016-10-11] MEDS: THIAMINE HCL 100 MG TABLET (FP) PO SCH (21:18)
[2016-10-11] MEDS: traZODone HCL 100 MG TABLET (FP) PO SCH (21:18)
[2016-10-11] MEDS: diphenhydrAMINE HCL 50 MG CAPSULE PO PRN (21:19)
[2016-10-12] MEDS: hydrOXYzine PAMOATE 50 MG CAPSULE (FP) PO PRN ×2 (06:27→20:28)
[2016-10-12] MEDS: AMOXICILLIN 500 MG CAPSULE (FP) PO SCH ×2 (10:33→21:00)
[2016-10-12] MEDS: PRENATAL VITAMINS W/ FOLIC ACID TABLET (FP) PO SCH (10:33)
[2016-10-12] MEDS: ESCITALOPRAM OXALATE 20 MG TABLET (FP) PO SCH (10:33)
[2016-10-12] MEDS: THIAMINE HCL 100 MG TABLET (FP) PO SCH (21:00)
[2016-10-12] MEDS: traZODone HCL 100 MG TABLET (FP) PO SCH (21:00)
[2016-10-13] MEDS: hydrOXYzine PAMOATE 50 MG CAPSULE (FP) PO PRN ×3 (06:34→20:03)
[2016-10-13] MEDS ORDERED: PT OWN MED DRAWER 7, Y5N ONE (09:10)
[2016-10-13] MEDS: AMOXICILLIN 500 MG CAPSULE (FP) PO SCH ×2 (10:14→21:08)
[2016-10-13] MEDS: ESCITALOPRAM OXALATE 20 MG TABLET (FP) PO SCH (10:14)
[2016-10-13] MEDS: PRENATAL VITAMINS W/ FOLIC ACID TABLET (FP) PO SCH (10:14)
--- NOTE | 2016-10-13 14:35 | PN ---
Psychiatric Progress Note Vital Signs: Vital Signs Period Temp Pulse Resp BP Sys/Castillo Pulse Ox Last 24 Hr 97.7 F 76 18-18 136/85 Date of Session: 10/13/16 Chief Complaint:: Insomnia/Craving for alcohol HPI: Patient addressing Alcohol and Cocaine Dependence comorbid with Nicotine Dependence and Anxiety Disorder Current Medications: Active Medications Generic Name Dose Route Start Last Admin Trade Name Freq PRN Reason Stop Dose Admin Acamprosate 666 mg 10/13/16 14:00 Campral - PO TID SARA Acetaminophen 650 mg 09/30/16 19:57 Tylenol - PO Q4H PRN PAIN Al Hydroxide/Mg Hydroxide 30 ml 09/30/16 19:57 Mylanta Oral Suspension - PO Q6H PRN DYSPEPSIA Amoxicillin 500 mg 10/09/16 22:00 10/13/16 10:14 Amoxicillin - PO 10/19/16 21:59 500 mg BID SARA Administration Diphenhydramine HCl 50 mg 09/30/16 19:57 10/11/16 21:19 Benadryl - PO 50 mg HSMR1 PRN Administration INSOMNIA Escitalopram Oxalate 20 mg 10/04/16 09:12 10/13/16 10:14 Lexapro - PO 20 mg DAILY SARA Administration Eucalyptus/Menthol/Phenol/Sorbitol 1 each 09/30/16 19:57 10/09/16 06:48 Cepastat Lozenge - MM 1 each Q4H PRN Administration SORE THROAT Guaifenesin 10 ml 09/30/16 19:57 Robitussin Dm - PO Q6H PRN COUGH Hydroxyzine Pamoate 50 mg 09/30/16 19:57 10/13/16 10:15 Vistaril - PO 50 mg Q4H PRN Administration AGITATION Ibuprofen 400 mg 09/30/16 19:57 Motrin - PO Q6H PRN SEVERE PAIN Loperamide HCl 4 mg 09/30/16 19:57 Imodium - PO Q6H PRN DIARRHEA Magnesium Citrate 300 ml 09/30/16 19:57 Citroma - PO Q48H PRN CONSTIPATION Magnesium Hydroxide 30 ml 09/30/16 19:57 Milk Of Magnesia - PO DAILY PRN CONSTIPATION Multivit/Folic Acid/Iron 1 tab 10/01/16 10:00 10/13/16 10:14 Vitamins (Sjr) - PO 1 tab DAILY SARA Administration Pseudoephedrine/Triprolidine 1 combo 09/30/16 19:57 Actifed - PO TID PRN NASAL CONGESTION Sodium Chloride 2 spray 10/11/16 14:38 10/13/16 10:14 Citrus [place] Nasal [place] - NS 2 spray BID PRN Administration NASAL CONGESTION Thiamine HCl 100 mg 09/30/16 22:00 10/12/16 21:00 Vitamin B1 - PO 100 mg HS SARA Administration Trazodone HCl 100 mg 10/05/16 22:00 10/12/16 21:00 Desyrel - PO 100 mg HS SARA Administration Medication(s) Change(s): 1) D/C Trazadone 100 mg po HS 2) Start Trazadone 150 mg po HS and Campral 666 mg po TID Provider note:: Patient reports experiencing difficulty to sleep. Told junior underwriter that he has been sleeping poorly despite taking Trazadone 100 mg po HS for insomnia. Also requests medication to help with craving for alcohol. Use of opoid antagonists like Acamprosate and Naltrexone were discussed with patient and because of some mild elevation in LFT's, he has decided to try Acamprosate. When he will be handed out a pamphlet with information about that medication Mental Status Exam - Mental Status Exam Alert and Oriented to: Time, Place, Person Cognitive Function: Fair Patient Appearance: Well Groomed Mood: Hopeful, Euthymic Affect: Appropriate Patient Behavior: Cooperative Speech Pattern: Clear Voice Loudness: Normal Thought Process: Intact Thought Disorder: Not Present Hallucinations: Denies Suicidal Ideation: Denies Homicidal Ideation: Denies Insight/Judgement: Fair Sleep: Poorly Appetite: Fair Muscle strength/Tone: Normal Gait/Station: Normal Psychiatric Treatment Plan - Problem List (1) Alcohol dependence Current Visit: No (2) Cocaine dependence Current Visit: No Qualifiers: Substance use status: uncomplicated Qualified Code(s): F14.20 - Cocaine dependence, uncomplicated (3) Nicotine dependence Current Visit: No Qualifiers: Nicotine product type: cigarettes Substance use status: uncomplicated Qualified Code(s): F17.210 - Nicotine dependence, cigarettes, uncomplicated (4) Anxiety disorder Current Visit: Yes (5) Panic disorder with agoraphobia Current Visit: Yes (6) LASHONDA (generalized anxiety disorder) Current Visit: No (7) Benign heart murmur Current Visit: No (8) HIV (human immunodeficiency virus infection) Current Visit: No (9) Hepatitis C antibody test positive Current Visit: No Initial treatment plan: 1) Discontinue Trazadone 100 mg po HS. 2) Start Trazadone 150 mg po HS and Acamprosate 666 mg po TID
[2016-10-13] MEDS: ACAMPROSATE CALCIUM 333 MG TABLET.DR PO SCH ×2 (15:10→21:08)
[2016-10-13] MEDS: THIAMINE HCL 100 MG TABLET (FP) PO SCH (21:08)
[2016-10-13] MEDS: traZODone HCL 50 MG TABLET (FP) PO SCH (21:09)
[2016-10-14] MEDS: ACAMPROSATE CALCIUM 333 MG TABLET.DR PO SCH ×3 (06:18→21:20)
[2016-10-14] MEDS: PRENATAL VITAMINS W/ FOLIC ACID TABLET (FP) PO SCH (10:11)
[2016-10-14] MEDS: AMOXICILLIN 500 MG CAPSULE (FP) PO SCH ×2 (10:11→21:20)
[2016-10-14] MEDS: ESCITALOPRAM OXALATE 20 MG TABLET (FP) PO SCH (10:11)
[2016-10-14] MEDS ORDERED: PT OWN MED DRAWER 7, Y5N ONE (13:26)
[2016-10-14] MEDS: hydrOXYzine PAMOATE 50 MG CAPSULE (FP) PO PRN (19:35)
[2016-10-14] MEDS: THIAMINE HCL 100 MG TABLET (FP) PO SCH (21:20)
[2016-10-14] MEDS: traZODone HCL 50 MG TABLET (FP) PO SCH (21:20)
[2016-10-15] MEDS: ACAMPROSATE CALCIUM 333 MG TABLET.DR PO SCH ×3 (06:51→21:05)
[2016-10-15] MEDS: hydrOXYzine PAMOATE 50 MG CAPSULE (FP) PO PRN ×2 (06:51→17:59)
[2016-10-15] MEDS: ESCITALOPRAM OXALATE 20 MG TABLET (FP) PO SCH (10:23)
[2016-10-15] MEDS: AMOXICILLIN 500 MG CAPSULE (FP) PO SCH ×2 (10:23→21:05)
[2016-10-15] MEDS: PRENATAL VITAMINS W/ FOLIC ACID TABLET (FP) PO SCH (10:23)
[2016-10-15] MEDS: THIAMINE HCL 100 MG TABLET (FP) PO SCH (21:04)
[2016-10-15] MEDS: traZODone HCL 50 MG TABLET (FP) PO SCH (21:04)
[2016-10-16] MEDS: ACAMPROSATE CALCIUM 333 MG TABLET.DR PO SCH ×3 (06:46→21:10)
[2016-10-16] MEDS: hydrOXYzine PAMOATE 50 MG CAPSULE (FP) PO PRN ×2 (06:46→14:45)
[2016-10-16] MEDS: AMOXICILLIN 500 MG CAPSULE (FP) PO SCH ×2 (10:15→21:10)
[2016-10-16] MEDS: ESCITALOPRAM OXALATE 20 MG TABLET (FP) PO SCH (10:15)
[2016-10-16] MEDS: PRENATAL VITAMINS W/ FOLIC ACID TABLET (FP) PO SCH (10:15)
[2016-10-16] MEDS: traZODone HCL 50 MG TABLET (FP) PO SCH (21:10)
[2016-10-16] MEDS: THIAMINE HCL 100 MG TABLET (FP) PO SCH (21:10)
[2016-10-17] MEDS: ACAMPROSATE CALCIUM 333 MG TABLET.DR PO SCH ×3 (06:31→22:07)
[2016-10-17] MEDS: hydrOXYzine PAMOATE 50 MG CAPSULE (FP) PO PRN (06:31)
[2016-10-17] MEDS: ESCITALOPRAM OXALATE 20 MG TABLET (FP) PO SCH (10:36)
[2016-10-17] MEDS: PRENATAL VITAMINS W/ FOLIC ACID TABLET (FP) PO SCH (10:36)
[2016-10-17] MEDS: THIAMINE HCL 100 MG TABLET (FP) PO SCH (22:07)
[2016-10-17] MEDS: traZODone HCL 50 MG TABLET (FP) PO SCH (22:07)
[2016-10-18] MEDS: ACAMPROSATE CALCIUM 333 MG TABLET.DR PO SCH ×3 (06:52→21:41)
[2016-10-18] MEDS: ESCITALOPRAM OXALATE 20 MG TABLET (FP) PO SCH (11:13)
[2016-10-18] MEDS: PRENATAL VITAMINS W/ FOLIC ACID TABLET (FP) PO SCH (11:13)
[2016-10-18] MEDS: hydrOXYzine PAMOATE 50 MG CAPSULE (FP) PO PRN (18:48)
[2016-10-18] MEDS: THIAMINE HCL 100 MG TABLET (FP) PO SCH (21:41)
[2016-10-18] MEDS: traZODone HCL 50 MG TABLET (FP) PO SCH (21:41)
[2016-10-19] MEDS: ACAMPROSATE CALCIUM 333 MG TABLET.DR PO SCH (06:22)
[2016-10-19] MEDS: hydrOXYzine PAMOATE 50 MG CAPSULE (FP) PO PRN ×2 (06:23→10:03)
--- NOTE | 2016-10-19 06:31 | PN ---
Psychiatric Progress Note Vital Signs: Vital Signs Period Temp Pulse Resp BP Sys/Castillo Pulse Ox Last 24 Hr 98.4 F 80 18-18 129/71 Date of Session: 10/19/16 Chief Complaint:: Psychiatrist Discharge Note HPI: Patient addressing Alcohol and Cocaine Dependence comorbid with Nicotine Dependence and Anxiety Disorder ROS: HIV, Hepatitis C were medically managed Current Medications: Active Medications Generic Name Dose Route Start Last Admin Trade Name Freq PRN Reason Stop Dose Admin Acamprosate 666 mg 10/13/16 14:00 10/18/16 21:41 Campral - PO 666 mg TID SARA Administration Acetaminophen 650 mg 09/30/16 19:57 Tylenol - PO Q4H PRN PAIN Al Hydroxide/Mg Hydroxide 30 ml 09/30/16 19:57 Mylanta Oral Suspension - PO Q6H PRN DYSPEPSIA Diphenhydramine HCl 50 mg 09/30/16 19:57 10/11/16 21:19 Benadryl - PO 50 mg HSMR1 PRN Administration INSOMNIA Escitalopram Oxalate 20 mg 10/04/16 09:12 10/18/16 11:13 Lexapro - PO 20 mg DAILY SARA Administration Eucalyptus/Menthol/Phenol/Sorbitol 1 each 09/30/16 19:57 10/09/16 06:48 Cepastat Lozenge - MM 1 each Q4H PRN Administration SORE THROAT Guaifenesin 10 ml 09/30/16 19:57 Robitussin Dm - PO Q6H PRN COUGH Hydroxyzine Pamoate 50 mg 09/30/16 19:57 10/18/16 18:48 Vistaril - PO 50 mg Q4H PRN Administration AGITATION Ibuprofen 400 mg 09/30/16 19:57 Motrin - PO Q6H PRN SEVERE PAIN Loperamide HCl 4 mg 09/30/16 19:57 Imodium - PO Q6H PRN DIARRHEA Magnesium Citrate 300 ml 09/30/16 19:57 Citroma - PO Q48H PRN CONSTIPATION Magnesium Hydroxide 30 ml 09/30/16 19:57 Milk Of Magnesia - PO DAILY PRN CONSTIPATION Multivit/Folic Acid/Iron 1 tab 10/01/16 10:00 10/18/16 11:13 Vitamins (Sjr) - PO 1 tab DAILY SARA Administration Pseudoephedrine/Triprolidine 1 combo 09/30/16 19:57 Actifed - PO TID PRN NASAL CONGESTION Sodium Chloride 2 spray 10/11/16 14:38 10/13/16 10:14 [place] Nasal [place] - NS 2 spray BID PRN Administration NASAL CONGESTION Thiamine HCl 100 mg 09/30/16 22:00 10/18/16 21:41 Vitamin B1 - PO 100 mg HS SARA Administration Trazodone HCl 150 mg 10/13/16 22:00 10/18/16 21:41 Desyrel - PO 150 mg HS SARA Administration Current Side Effect: No Lab tests ordered: Yes Lab tests reviewed: Yes Provider note:: Patient has completed this program today. He has met his treatment goals and will continue to address his issues in assisted treatment at [facility]. He verbalized understanding the negative consequences of his addiction and from his participation in this program, he has learned the importance of establising a sober support network in order to maintain sobriety. He responded well to Lexapro 20 mg po daily, Trazadone 150 mg po HS and Acamprosate 666 mg po TID. Scripts for this medications are electronically transmitted to [facility]/Pharmacy at [address] [place] [address]. He is stable for discharge today Total face to face time:: 35 Mental Status Exam - Mental Status Exam Alert and Oriented to: Time, Place, Person Cognitive Function: Fair Patient Appearance: Well Groomed Mood: Hopeful, Euthymic Affect: Appropriate Patient Behavior: Cooperative Speech Pattern: Clear Voice Loudness: Normal Thought Process: Intact Thought Disorder: Not Present Hallucinations: Denies Suicidal Ideation: Denies Homicidal Ideation: Denies Insight/Judgement: Fair Sleep: Fair Appetite: Good Muscle strength/Tone: Normal Gait/Station: Normal Psychiatric Treatment Plan - Problem List (1) Alcohol dependence Current Visit: No (2) Cocaine dependence Current Visit: No Qualifiers: Substance use status: uncomplicated Qualified Code(s): F14.20 - Cocaine dependence, uncomplicated (3) Nicotine dependence Current Visit: No Qualifiers: Nicotine product type: cigarettes Substance use status: uncomplicated Qualified Code(s): F17.210 - Nicotine dependence, cigarettes, uncomplicated (4) Anxiety disorder Current Visit: Yes (5) Panic disorder with agoraphobia Current Visit: Yes (6) LASHONDA (generalized anxiety disorder) Current Visit: No (7) Benign heart murmur Current Visit: No (8) HIV (human immunodeficiency virus infection) Current Visit: No (9) Hepatitis C antibody test positive Current Visit: No Initial treatment plan: Patient is discharged today and referred to [facility] for assisted treatment
[2016-10-19 06:56] VITALS: BP 128/79; PULSE 74; TEMP 97.9
[2016-10-19] MEDS: ESCITALOPRAM OXALATE 20 MG TABLET (FP) PO SCH (10:03)
[2016-10-19] MEDS: PRENATAL VITAMINS W/ FOLIC ACID TABLET (FP) PO SCH (10:03)
== END 2016-10-19 10:15 | disposition home or self-care (01) | DRG 772 ==
LOC: YASAS 16:38 → Y3W 20:04
PROVIDERS: ADMIT Psychiatry & Neurology Psychiatry; ATTEND Psychiatry & Neurology Psychiatry
PROC: HZ42ZZZ Group Counseling for Substance Abuse Treatment, Cognitive-Behavioral (ICD-10-PCS; principal; 2016-09-30)
DX: F10.20 Alcohol dependence, uncomplicated (principal); F14.20 Cocaine dependence, uncomplicated; F17.210 Nicotine dependence, cigarettes, uncomplicated; F41.9 Anxiety disorder, unspecified; F40.01 Agoraphobia with panic disorder; F41.1 Generalized anxiety disorder; Z21 Asymptomatic human immunodeficiency virus [HIV] infection status; B18.2 Chronic viral hepatitis C; R01.1 Cardiac murmur, unspecified; J02.9 Acute pharyngitis, unspecified
CPT/HCPCS: 36415; 80053; 81003; 83036; 93005; 93010